=== PATIENT | male | born 1950 | race Caucasian/White ===

== ENCOUNTER 2018-07-27 08:37 | Inpatient (IN) | payer OTHER ==
[~2018-07-27] VITALS: Ht 167.6 cm; Wt 74.0 kg
[~2018-07-27 08:37] MED LIST: NPH,100V SC
[2018-07-27] MEDS ORDERED: VANCOMYCIN 1 GM (PMX) 250 ML IVPB STA (09:10)
[2018-07-27] MEDS ORDERED: SODIUM CHLORIDE 0.9% 1L BAG IV* STA (09:10)
[2018-07-27] MEDS ORDERED: PIPER-TAZO 3.375 GM IV (PMX) 100 ML IVPB STA (09:10)
--- NOTE | 2018-07-27 10:01 | ERD ---
ER Documentation Chief Complaint Chief Complaint PT SENT PER PMD FOR ADMISSION ON LEFT DIABETIC FOOT HPI This is a 68-year-old male with a past medical history of diabetes, diabetic foot ulcers status post left great toe amputation with a chronic plantar ulcer who is presenting with concerns of osteomyelitis. The patient was evaluated by his underground heavy equipment operator yesterday who recommended admission to the hospital for antibiotics and further management. The patient reports intermittent fever and chills at home, but he does not endorse these symptoms currently. Aside from pain and swelling to his left foot, the patient has no other complaints. The patient has had no headache or vision changes. The patient does not endorse neck or back pain. The patient denies lightheadedness or dizziness. The patient has had no chest pain or trouble breathing. The patient denies nausea or vomiting. The patient denies abdominal pain. The patient denies changes to bowel movements or urination. The patient has had no focal deficits. The patient has had no weakness or numbness or tingling to the face or extremities. ROS All systems reviewed and are negative except as per history of present illness. Medications Home Meds Reported Medications Insulin NPH Human Isophane (Humulin N) 100 Unit/1 Ml Vial, 8 UNIT SQ BID, VIAL 07/27/18 Discontinued Reported Medications Nph, Human Insulin Isophane (Humulin N) 100 Units/Ml Vial, 8 UNIT SC BID, VIAL 11/28/14 Allergies Allergies: Coded Allergies: No Known Allergy (Unverified , 07/27/18) PMhx/Soc History of Surgery: Yes (LEFT FIRST TOE AMPUTATION 01/2015) Anesthesia Reaction: No Hx Neurological Disorder: No Hx Respiratory Disorders: No Hx Cardiac Disorders: Yes (Diabetes) Hx Psychiatric Problems: No Hx Miscellaneous Medical Probl: No Hx Alcohol Use: Yes Hx Substance Use: No Hx Tobacco Use: No FmHx Family History: diabetes Physical Exam Vitals Vital Signs Date Temp Pulse Resp B/P (MAP) Pulse Ox O2 O2 Flow FiO2 Time Delivery Rate 07/27/18 101 17 145/75 100 Room Air 09:35 (98) 07/27/18 97.2 70 17 104/57 100 08:40 (73) Physical Exam Const: No apparent distress, well-developed, well-nourished Head: Normocephalic, Atraumatic Eyes: Normal Conjunctiva. Extraocular movements intact. Pupils equal, round and reactive to light ENT: Normal External Ears, Nose and Mouth. Neck: Full range of motion. No meningismus. Resp: Clear to auscultation bilaterally, No wheezes, rales or rhonchi Cardio: Regular rate and rhythm. No murmurs, rubs or gallops Abd: Soft, non tender, non distended. Normal bowel sounds Skin: No petechiae or rashes Back: No midline tenderness. No CVA tenderness Ext: No cyanosis. Left pedal edema. Left foot great toe amputation. Ulceration to the plantar aspect of the foot. Neur: Awake and alert, oriented 4. Cranial nerves intact. No facial droop. Normal strength, sensation and coordination. Psych: Normal Mood and Affect Result Diagram: 07/27/1891307/27/18913 Results 24 hrs Laboratory Tests Test 07/27/18 09:14 07/27/18 09:25 07/27/18 09:46 White Blood Count 6.4 10^3/ul Red Blood Count 3.03 10^6/ul Hemoglobin 9.7 g/dl Hematocrit 29.6 % Mean Corpuscular Volume 97.7 fl Mean Corpuscular Hemoglobin 32.0 pg Mean Corpuscular 32.8 g/dl Hemoglobin Concent Red Cell Distribution Width 12.5 % Platelet Count 395 10^3/UL Mean Platelet Volume 9.9 fl Immature Granulocytes % 0.200 % Neutrophils % 63.6 % Lymphocytes % 25.3 % Monocytes % 8.9 % Eosinophils % 1.7 % Basophils % 0.3 % Nucleated Red Blood Cells % 0.0 /100WBC Immature Granulocytes # 0.010 10^3/ul Neutrophils # 4.1 10^3/ul Lymphocytes # 1.6 10^3/ul Monocytes # 0.6 10^3/ul Eosinophils # 0.1 10^3/ul Basophils # 0.0 10^3/ul Nucleated Red Blood Cells # 0.0 10^3/ul Prothrombin Time 13.8 Sec Prothrombin Time Ratio 1.1 INR International 1.05 Normalized Ratio Activated Partial Thromboplast 36.7 Sec Time Sodium Level 140 mmol/L Potassium Level 4.2 mmol/L Chloride Level 106 mmol/L Carbon Dioxide Level 25 mmol/L Anion Gap 9 Blood Urea Nitrogen 25 mg/dl Creatinine 1.89 mg/dl Est Glomerular Filtrat 35 mL/min Rate mL/min Glucose Level 159 mg/dl Calcium Level 8.7 mg/dl C-Reactive Protein 8.1 mg/dl Erythrocyte Sedimentation Rate 130.0 mm/Hr POC Venous Lactate 2.0 mmol/L Current Medications Medications Dose Sig/Pablo Start Time Status Last (Trade) Ordered Route PRN Stop Time Admin Dose Reason Admin Sodium 2,180 ml BOLUS OVER 2 07/27/18 DC 07/27/18 Chloride HOURS STAT 09:10 10:11 (NS) IV* 07/27/18 09:15 Vancomycin 250 ml @ ONCE STAT 07/27/18 DC 07/27/18 HCl 125 mls/hr IVPB 09:10 10:58 07/27/18 11:09 Piperacillin 100 ml @ ONCE STAT 07/27/18 DC 07/27/18 Sod/ 200 mls/hr IVPB 09:10 10:10 Tazobactam 07/27/18 Sod 09:39 Sodium 1,000 ml @ [id number] IV 07/27/18 07/27/18 Chloride 75 mls/hr 10:22 12:06 Procedures/MDM MDM The patient's presentation warrants further investigation. Previous medical records, if available, were reviewed. LABS The patient's laboratory testing was obtained and reviewed. No emergent treatment was required unless described below. CBC: No E/o of systemic infection or severe anemia or thrombocytopenia. Mild normocytic anemia, not emergent. BMP: No E/o severe acidosis or alkalosis or diabetic ketoacidosis. Increasing creatinine, concerning for acute on chronic kidney disease. Lactate: No E/o severe sepsis ESR/CRP: Elevated, could correlate with osteomyelitis EKG EKG read by me: Rate/Rhythm: Regular rate and rhythm at a rate of 86 bpm Intervals: Normal [place]: Normal Impression: No evidence of acute ischemia or arrhythmia IMAGING Imaging and Radiology interpretation reviewed. CXR FINDINGS: The heart and mediastinum are within normal limits. The lungs are clear. There is no pleural effusion or pneumothorax. IMPRESSION: No acute disease. Electronically viewed and signed by .Shashank Gagnon MD, MD on 07/27/2018 10 :18 XR Foot IMPRESSION: Findings concerning for osteomyelitis at the second and third MTP joints with adjacent soft tissue wound and plantar ulcer. Dislocation at the third MTP joint. Electronically viewed and signed by Physician Maykel on 07/27/2018 10:26 MRI Foot Findings consistent with osteomyelitis and probable septic arthritis at the second and third MTP joints with adjacent soft tissue edema and phlegmonous material, as well as soft tissue air suggesting gangrene. Mild bone marrow edema at the fourth MTP joint without definite destructive changes may represent early osteomyelitis or reactive osteitis. No evidence of osteomyelitis at the first metatarsal amputation site. Dislocation at the third MTP joint. Electronically viewed and signed by Rodri Donohue Physician on 07/27/2018 15:53 TREATMENT/DISPOSITION The patient's presents from his underground heavy equipment operator office with concerns of osteomyelitis, confirmed on the MRI imaging. There is also concern for possible septic arthritis. The patient was started on vancomycin and Zosyn in the emergency department. Blood cultures were sent off. The patient is afebrile with no leukocytosis or lactic acidosis. I have low suspicion for sepsis. I do not feel the patient requires a full septic workup. The patient appears to have acute on chronic kidney disease. This will need to be serially monitored closely in the hospital. At this time, I feel that the patient requires admission for further evaluation and management. The patient will be admitted to Dr. Cordova in accordance with the patient's insurance, [facility]. The patient was accepted 10:30AM on 07/27/2018 to [facility]. Dr. Jack, podiatry, will follow the patient in the hospital with possible need for surgical intervention. Disclaimer: Inadvertent spelling and grammatical errors are likely due to EHR/dictation software use and do not reflect on the overall quality of patient care. Note that the electronic time recorded on this note does not necessarily reflect the actual time of the patient encounter. Departure Diagnosis: Primary Impression: Osteomyelitis of toe of left foot Additional Impressions: Septic arthritis of foot Septic arthritis organism: due to unspecified organism Laterality: left Qualified Codes: M00.9 - Pyogenic arthritis, unspecified Diabetic foot ulcer Diabetic foot ulcer location: midfoot Diabetes mellitus type: type 2 Laterality: left Non-pressure ulcer stage: unspecified non-pressure ulcer stage Qualified Codes: E11.621 - Type 2 diabetes mellitus with foot ulcer; L97.429 - Non-pressure chronic ulcer of left heel and midfoot with unspecified severity Normocytic anemia Elevated erythrocyte sedimentation rate Elevated C-reactive protein (CRP) Acute kidney injury superimposed on chronic kidney disease Condition: YORDAN Frost MD Jul 27, 2018 10:01
[2018-07-27] MEDS ORDERED: ACETAMINOPHEN 325 MG TAB PO PRN ×2 (10:30)
[2018-07-27] MEDS ORDERED: morphine 2 MG INJ IV PRN (10:30)
[2018-07-27] MEDS ORDERED: DOCUSATE SODIUM 100 MG CAP PO PRN (10:30)
[2018-07-27] MEDS ORDERED: HYDROCODONE/APAP (5/325) TAB PO PRN (10:30)
[2018-07-27] MEDS ORDERED: ONDANSETRON 4 MG INJ IV PRN ×2 (10:30)
[2018-07-27] MEDS ORDERED: VANCOMYCIN IV PER PHARMACY XX SCH (10:30)
[2018-07-27] MEDS ORDERED: NACL 0.9% 3 ML SYG IV SCH (10:30)
[2018-07-27] MEDS ORDERED: NPH,100V SQ (11:27)
[2018-07-27 11:44] VITALS: Ht 167.6 cm; Wt 74.0 kg
[2018-07-27 11:49] VITALS: BP 160/72; PULSE 86; RESP 18
[2018-07-27] MEDS: INSULIN ASPART [NOVOLOG] 3 ML PEN SC SCH ×3 (12:00→20:12)
[2018-07-27] MEDS: FAMOTIDINE 20 MG TAB PO SCH (12:05)
[2018-07-27] MEDS: LOSARTAN 50 MG TAB GTB SCH (12:05)
[2018-07-27] MEDS: SOD CHLORIDE 0.9% 1,000 ML IV SCH ×2 (12:06→23:05)
[2018-07-27] MEDS ORDERED: VANCOMYCIN 500 MG (PMX) 100 ML IVPB ONE (14:00)
[2018-07-27] MEDS ORDERED: HEPARIN 5,000 UNIT/0.5 ML VIAL ONE ×2 (14:18→22:53)
[2018-07-27] MEDS: HEPARIN 5,000 UNIT/1 ML VIAL SC SCH ×2 (14:19→23:04)
--- NOTE | 2018-07-27 14:31 | HP ---
Date/Time of Note Date/Time of Note DATE: 07/27/18 TIME: 14:28 Assessment/Plan VTE Prophylaxis Pharmacological prophylaxis: heparin Lines/Catheters IV Catheter [facility] (from [facility]): Saline Lock Urinary Cath still in place: No Assessment/Plan Hospital Course 68 m with DM2 on insulin, HTN, HLD, PAD s/p LLE bypass [address] Steel , s/p left toe amputation who was referred by his tuft machine operator Dr Jack in concern for DM foot infection and osteomyelitis. (1) Diabetic foot infection with evidence of phlegmon and osteomyelitis on MRI , admit to med surg, IV ABX: Vanc and Zosyn, NPO after midnight for possible podiatric intervention , may need amputation ? , venous US to rule out DVT , echo for preoperative assessment (2) HTN (hypertension), continue home Losartan , added Hydralazine 25 Q8h for better BP control (3) CKD stage 3 due to type 1 diabetes mellitus, Creatinine above baseline bases on 5 years ago , DM HTN nephropathy , avoid nephrotoxic agents , renally dosed medications (4) PAD (peripheral artery disease), s/p bypass , arterial US (5) DM2 on insulin, moderate sliding scale insulin , A1C in AM PPX: heparin and Pepcid Dispo : Med Surg Full code Problems: (1) Osteomyelitis of left foot Status: Acute (2) Diabetic foot infection Status: Acute (3) HTN (hypertension) Status: Chronic (4) CKD stage 3 due to type 1 diabetes mellitus Status: Chronic (5) PAD (peripheral artery disease) Status: Chronic HPI/ROS Admit Date/Time Admit Date/Time Jul 27, 2018 at 10:23 Hx of Present Illness 68 m with DM2 on insulin, HTN, HLD, CKD3 (DM nephropathy ), PAD s/p LLE bypass [address] Steel , s/p left toe amputation who was referred by his tuft machine operator Dr Jack in concern for DM foot infection and osteomyelitis. He denies LE pain, denies fever chills , fatigue . denies CP , SOB, nausea vomiting , abdominal pain , melena, hematochezia , change in urinary habits , change in vision . Over the course of past month he developed progressively worsening LLE infections . PMH/Family/Social Past Medical History Coded Allergies: No Known Allergy (Unverified , 07/27/18) Social History Smoking Status: Never smoker Exam/Review of Systems Vital Signs Vitals Vital Signs Date Temp Pulse Resp B/P (MAP) Pulse Ox O2 O2 Flow FiO2 Time Delivery Rate 07/27/18 98.6 86 18 160/72 96 Room Air 11:49 (101) Exam Exam Gen.: In no acute distress, pleasant and cooperative Eyes: Anicteric, conjunctiva normal, PERRLA, EOM intact HEENT: Normocephalic, atraumatic, hearing grossly intact, oral mucosa moist, no oral lesions Neck: Supple, no masses, trachea midline Cardiovascular: Regular rate and rhythm, no murmurs, no gallops, no rubs Respiratory: Clear to auscultation bilaterally, no use of accessory muscles of respiration, no wheezes, expiration not prolonged Extremities: LLE cyanotic toes and metatarsal , edematous and infected looking , malodorous ulcerated left foot , RLE appears normal with very dry skin Abdomen: Soft, not distended, nontender, bowel sounds present, no guarding, no rebound Neurological: Alert and oriented x3, speech normal, CN 2-12 no deficit, no motor or sensory deficit, coordination normal : No Chopra catheter Heme: No acute bleeding, no ecchymosis or petechia Psych: No anxiety depression, mood and affect appropriate Medications Medications Current Medications Ondansetron HCl (Zofran Inj) 4 mg BRIDGE ORDER PRN IV NAUSEA AND/OR VOMITING; Start 07/27/18 at 10:30; Stop 07/28/18 at 10:29 Acetaminophen (Tylenol Tab) 650 mg ER BRIDGE PRN PO MILD PAIN(1-3)OR ELEVATED TEMP; Start 07/27/18 at 10:30; Stop 07/28/18 at 10:29 Sodium Chloride 1,000 ml @ 75 mls/hr [id number] IV Last administered on 07/27/18at 12:06; Admin Dose 75 MLS/HR; Start 07/27/18 at 10:22 IV Flush (NS 3 ml) 3 ml PER PROTOCOL IV ; Start 07/27/18 at 10:30 Ondansetron HCl (Zofran Inj) 4 mg Q6H PRN IV NAUSEA AND/OR VOMITING; Start 07/27/18 at 10:30 Acetaminophen (Tylenol Tab) 650 mg Q6H PRN PO PAIN LEVEL 1-3 OR FEVER; Start 07/27/18 at 10:30 Acetaminophen/ Hydrocodone Bitart ([place] (5/325)) 1 tab Q6H PRN PO MODERATE PAIN LEVEL 4-6; Start 07/27/18 at 10:30 Morphine Sulfate (morphine) 2 mg Q4H PRN IV SEVERE PAIN LEVEL 7-10; Start 07/27/18 at 10:30 Docusate Sodium (Colace) 100 mg Q12H PRN PO CONSTIPATION; Start 07/27/18 at 10:30 Famotidine (Pepcid) 20 mg DAILY PO Last administered on 07/27/18at 12:05; Admin Dose 20 MG; Start 07/27/18 at 12:00 Heparin Sodium (Porcine) (Heparin (5000 Units/1ml)) 5,000 unit Q8 SC Last administered on 07/27/18at 14:19; Admin Dose 5,000 UNIT; Start 07/27/18 at 14:00 Vancomycin HCl (Vanco Iv Per Pharmacy) VANCOMYCIN PER PHARMACY PER PROTOCOL XX ; Start 07/27/18 at 10:30 Piperacillin Sod/ Tazobactam Sod 100 ml @ 200 mls/hr Q8 IVPB ; Start 07/27/18 at 22:00 Diagnostic Test (Pha) (Accu-Chek) 1 ea 02 XX ; Start 07/28/18 at 02:00 Insulin Aspart (Novolog Insulin Pen) NOVOLOG *MODERATE* ALGORITHM WITH MEALS BEDTIME SC ; Start 07/27/18 at 12:00 Losartan Potassium (Cozaar) 50 mg DAILY GTB Last administered on 07/27/18at 12:05; Admin Dose 50 MG; Start 07/27/18 at 11:00 Vancomycin HCl 100 ml @ 100 mls/hr ONCE ONCE IVPB Last administered on 07/27/18at 14:16; Admin Dose 100 MLS/HR; Start 07/27/18 at 14:00; Stop 1 09/27/17 at 14:59 Results Result Diagram: 07/27/1814 07/27/1814 Results 24 hrs Laboratory Tests Test 07/27/18 09:14 07/27/18 09:25 07/27/18 09:46 07/27/18 12:01 White Blood 6.4 Count Red Blood Count 3.03 L Hemoglobin 9.7 L Hematocrit 29.6 L Mean Corpuscular 97.7 Volume Mean Corpuscular 32.0 Hemoglobin Mean Corpuscular 32.8 Hemoglobin Shania nt Red Cell 12.5 Distribution Width Platelet Count 395 Mean Platelet 9.9 # Volume Immature 0.200 Granulocytes % Neutrophils % 63.6 Lymphocytes % 25.3 Monocytes % 8.9 Eosinophils % 1.7 Basophils % 0.3 Nucleated Red 0.0 Blood Cells % Immature 0.010 Granulocytes # Neutrophils # 4.1 Lymphocytes # 1.6 Monocytes # 0.6 Eosinophils # 0.1 Basophils # 0.0 Nucleated Red 0.0 Blood Cells # Prothrombin Time 13.8 Prothrombin Time 1.1 Ratio INR 1.05 International Normalized Ratio Activated 36.7 H Partial Thrombop last Time Sodium Level 140 Potassium Level 4.2 Chloride Level 106 Carbon Dioxide 25 Level Anion Gap 9 Blood Urea 25 H Nitrogen Creatinine 1.89 H Est Glomerular 35 L Filtrat Rate mL/min Glucose Level 159 Calcium Level 8.7 C-Reactive 8.1 H Protein Erythrocyte 130.0 H Sedimentation Rate POC Venous 2.0 Lactate Bedside Glucose 92 LUIS F DYER MD Jul 27, 2018 14:31
[2018-07-27 15:52] VITALS: BP 145/73; PULSE 92; RESP 18
[2018-07-27] MEDS ORDERED: morphine LIQ (10 MG/5 ML) CUP PO PRN (18:00)
[2018-07-27 19:38] VITALS: BP 156/70; PULSE 86; RESP 20
[2018-07-27] MEDS: PIPER-TAZO 3.375 GM IV (PMX) 100 ML IVPB SCH (23:02)
[2018-07-28] VITALS (7 sets, daily range): BP systolic 104–174; BP diastolic 58–80; PULSE 83–102; RESP 17–20
[2018-07-28] MEDS ORDERED: ACCU-CHEK XX SCH (02:00)
[2018-07-28] MEDS: HEPARIN 5,000 UNIT/1 ML VIAL SC SCH ×3 (05:24→22:00)
[2018-07-28] MEDS: PIPER-TAZO 3.375 GM IV (PMX) 100 ML IVPB SCH ×3 (05:24→21:54)
[2018-07-28] MEDS ORDERED: INSULIN ASPART [NOVOLOG] 3 ML PEN SC SCH (08:00)
[2018-07-28] MEDS: Insulin NOVOLOG SS MODERATE Algorithm(NPO/TPN/ENTERAL FEEDS) SC SCH ×3 (09:00→17:00)
--- NOTE | 2018-07-28 09:24 | PN ---
Date/Time of Note Date/Time of Note DATE: 07/28/18 TIME: 09:24 Assessment/Plan VTE Prophylaxis Risk score (from Nsg)>0 risk: 4 SCD applied (from Nsg): Yes Pharmacological prophylaxis: heparin Lines/Catheters IV Catheter Type (from Nrsg): Saline Lock Urinary Cath still in place: No Assessment/Plan Hospital Course 68 m with DM2 on insulin, HTN, HLD, PAD s/p LLE bypass [address] Steel , s/p left toe amputation who was referred by his pyrometer mechanic Dr Jack in concern for DM foot infection and osteomyelitis. (1) Diabetic foot infection with evidence of phlegmon and osteomyelitis on MRI , , IV ABX: Vanc and Zosyn, awaiting podiatric intervention , may need ampu tation ? , venous US ruled out DVT , echo for preoperative assessment was unremarkable , (2) HTN (hypertension), continue home Losartan , added Hydralazine 25 Q8h for better BP control (3) CKD stage 3 due to type 2 diabetes mellitus, Creatinine above baseline bases on 5 years ago on admission which improved s/p hydration , DM HTN nephropathy , avoid nephrotoxic agents , renally dosed medications (4) PAD (peripheral artery disease), s/p bypass ,on arterial US severe PAD demonstrated on the left side , seen by vascular surgery , plan for angiogram on Tuesday by Dr Steel (5) DM2 on insulin, moderate sliding scale insulin , A1C 6.2 PPX: heparin and Pepcid Dispo : Med Surg Full code Subjective 24 Hr Interval Summary Free Text/Dictation No fever , no chills, no fever, tolerating the diet , Exam/Review of Systems Vital Signs Vitals Vital Signs Date Temp Pulse Resp B/P (MAP) Pulse Ox O2 O2 Flow FiO2 Time Delivery Rate 07/28/18 98.0 83 17 174/79 100 Room Air 08:03 (110) Intake and Output 07/27/18 07/27/18 07/28/18 1515:00 23:00 07:00 IntakeIntake Total 2240 ml 685 ml 630 ml OutputOutput Total 700 ml 600 ml 300 ml BalanceBalance 1540 ml 85 ml 330 ml Exam Gen.: In no acute distress, pleasant and cooperative Eyes: Anicteric, conjunctiva normal, PERRLA, EOM intact HEENT: Normocephalic, atraumatic, hearing grossly intact, oral mucosa moist, no oral lesions Neck: Supple, no masses, trachea midline Cardiovascular: Regular rate and rhythm, no murmurs, no gallops, no rubs Respiratory: Clear to auscultation bilaterally, no use of accessory muscles of respiration, no wheezes, expiration not prolonged Extremities: LLE cyanotic toes and metatarsal , edematous and infected looking , malodorous ulcerated left foot , RLE appears normal with very dry skin Abdomen: Soft, not distended, nontender, bowel sounds present, no guarding, no rebound Neurological: Alert and oriented x3, speech normal, CN 2-12 no deficit, no motor or sensory deficit, coordination normal : No Chopra catheter Heme: No acute bleeding, no ecchymosis or petechia Psych: No anxiety depression, mood and affect appropriate Medications Medications Current Medications Sodium Chloride 1,000 ml @ 75 mls/hr [id number] IV Last administered on 07/27/18at 12:06; Admin Dose 75 MLS/HR; Start 07/27/18 at 10:22 IV Flush (NS 3 ml) 3 ml PER PROTOCOL IV ; Start 07/27/18 at 10:30 Ondansetron HCl (Zofran Inj) 4 mg Q6H PRN IV NAUSEA AND/OR VOMITING; Start 07/27/18 at 10:30 Acetaminophen (Tylenol Tab) 650 mg Q6H PRN PO PAIN LEVEL 1-3 OR FEVER; Start 07/27/18 at 10:30 Acetaminophen/ Hydrocodone Bitart ([place] (5/325)) 1 tab Q6H PRN PO MODERATE PAIN LEVEL 4-6; Start 07/27/18 at 10:30 Docusate Sodium (Colace) 100 mg Q12H PRN PO CONSTIPATION; Start 07/27/18 at 10:30 Famotidine (Pepcid) 20 mg DAILY PO Last administered on 07/27/18at 12:05; Admin Dose 20 MG; Start 07/27/18 at 12:00 Heparin Sodium (Porcine) (Heparin (5000 Units/1ml)) 5,000 unit Q8 SC Last administered on 07/27/18at 23:04; Admin Dose 5,000 UNIT; Start 07/27/18 at 14:00 Vancomycin HCl (Vanco Iv Per Pharmacy) VANCOMYCIN PER PHARMACY PER PROTOCOL XX ; Start 07/27/18 at 10:30 Piperacillin Sod/ Tazobactam Sod 100 ml @ 200 mls/hr Q8 IVPB Last administered on 07/28/18at 05:24; Admin Dose 200 MLS/HR; Start 07/27/18 at 22:00 Diagnostic Test (Pha) (Accu-Chek) 1 ea 02 XX ; Start 07/28/18 at 02:00 Losartan Potassium (Cozaar) 50 mg DAILY GTB Last administered on 07/27/18at 12:05; Admin Dose 50 MG; Start 07/27/18 at 11:00 Vancomycin HCl 750 mg/Sodium Chloride 150 ml @ 75 mls/hr Q24H IVPB ; Start 07/28/18 at 11:00 Morphine Sulfate (morphine) 6 mg Q4H PRN PO SEVERE PAIN LEVEL 7-10; Start 07/27/18 at 18:00 Insulin Aspart (Novolog Insulin Pen) (Adult SC Insulin - Moder... Q4 SC ; Start 07/28/18 at 09:00 Sodium Bicarbonate (Na Bicarb 8.4% Syg) 50 ml ONCE ONCE IV ; Start 07/28/18 at 09:30; Stop 07/28/18 at 09:31 Calcium Gluconate 1 gm/Dextrose 110 ml @ 110 mls/hr ONCE ONCE IVPB ; Start 07/28/18 at 11:00; Stop 07/28/18 at 11:59 Hydralazine HCl (Apresoline) 50 mg Q8 PO ; Start 07/28/18 at 14:00 Results Result Diagram: 07/28/18 0619 07/28/18 0619 Results 24 hrs Laboratory Tests Test 07/27/18 09:25 07/27/18 09:46 07/27/18 12:01 07/27/18 13:46 Erythrocyte 130.0 H Sedimentation Rate POC Venous 2.0 Lactate Bedside Glucose 92 Lactic Acid 0.8 Level Test 07/27/18 17:34 07/27/18 20:10 07/28/18 02:31 07/28/18 06:19 Bedside Glucose 99 95 158 White Blood 4.7 #L Count Red Blood Count 2.79 L Hemoglobin 8.8 L Hematocrit 27.0 L Mean Corpuscular 96.8 Volume Mean Corpuscular 31.5 Hemoglobin Mean Corpuscular 32.6 Hemoglobin Shania nt Red Cell 12.5 Distribution Width Platelet Count 355 Mean Platelet 10.0 Volume Immature 0.400 Granulocytes % Neutrophils % 61.2 Lymphocytes % 25.3 Monocytes % 9.9 Eosinophils % 3.0 Basophils % 0.2 Nucleated Red 0.0 Blood Cells % Immature 0.020 Granulocytes # Neutrophils # 2.9 Lymphocytes # 1.2 Monocytes # 0.5 Eosinophils # 0.1 Basophils # 0.0 Nucleated Red 0.0 Blood Cells # Sodium Level 140 Potassium Level 5.3 H Chloride Level 109 Carbon Dioxide 27 Level Anion Gap 4 L Blood Urea 21 H Nitrogen Creatinine 1.62 H Est Glomerular 42 L Filtrat Rate mL/min Glucose Level 130 Hemoglobin A1c 6.2 H Calcium Level 8.8 Phosphorus Level 3.3 Magnesium Level 1.6 L Total Bilirubin 0.3 Direct Bilirubin 0.00 Indirect 0.3 Bilirubin Aspartate Amino 16 Transf (AST/SGOT ) Alanine 19 Aminotransferase (ALT/SGPT) Alkaline 111 Phosphatase Total Protein 5.9 L Albumin 2.6 L Globulin 3.30 H Albumin/Globulin 0.78 Ratio Triglycerides 165 H Level Cholesterol 127 Level LDL Cholesterol, 72 Calculated HDL Cholesterol 22 L Cholesterol/HDL 5.7 Ratio Free Thyroxine Pending Index Thyroxine (T4) Pending Triiodothyronine 42.3 H (T3) Uptake LUIS F DYER MD Jul 28, 2018 09:24
[2018-07-28] MEDS ORDERED: NA BICARBONATE 8.4% 50 ML SYG IV ONE (09:30)
[2018-07-28] MEDS: FAMOTIDINE 20 MG TAB PO SCH (09:47)
[2018-07-28] MEDS: LOSARTAN 50 MG TAB GTB SCH (09:49)
[2018-07-28] MEDS ORDERED: CALCIUM GLUCONATE 10% 1 GM in DEXTROSE 5% 100 ML IVPB ONE (11:00)
[2018-07-28] MEDS: VANCOMYCIN 750 MG in SOD CHLORIDE 0.9% 150 ML IVPB SCH (11:41)
--- NOTE | 2018-07-28 15:05 | CONS ---
DATE OF ADMISSION: 07/27/2018 DATE OF CONSULTATION: 07/28/2018 REFERRING PHYSICIAN: Davion Dyer MD REASON FOR CONSULTATION: Left foot abscess, osteomyelitis. HISTORY OF PRESENT ILLNESS: This is a 68-year-old diabetic hypertensive gentleman who is well known to me from the past. He had a left lower extremity bypass 3 or 4 years ago for osteomyelitis in the 1st toe. The toes went on to be amputated and it healed. The bypass subsequently occluded at some p oint. Over the last several years, it has been chronically occluded. I actually saw him in my offic e probably 4 or 5 months ago with a wound on the left foot and had scheduled him for an angiogram. Debora lnodon never showed up. He never returned any calls. Apparently, he goes in [facility]. He said he just came back from [facility] 12 days ago and about 3 weeks ago, he started having more drainage and has d eveloped cellulitis and infection of the left foot. He saw Dr. Winslow the day before yesterday and debora london was admitted for further evaluation and debridement. PAST MEDICAL HISTORY: Again, significant for diabetes, hypertension, hyperlipidemia, has chronic kid karen disease, peripheral arterial disease. PAST SURGICAL HISTORY: Significant for left pop PT bypass and then 1st toe amputation that was about 4 years ago. He has never had any CABG. He denies any coronary artery disease. MEDICATIONS: Consist of: 1. Vancomycin. 2. Insulin. 3. Subcutaneous heparin. 4. Zosyn. 5. Hydralazine. 6. Morphine. 7. Pepcid. 8. Cozaar. 9. Zofran. 10. Tylenol. SOCIAL HISTORY: He is a former smoker. He goes to [facility] and he just came back from there a few weeks ago. REVIEW OF SYSTEMS: Currently, denies any chest pain, shortness of breath, nausea, vomiting, diarrhea . No fever, no chills, no recent weight gain or weight loss. No abdominal or back pain. He has divya ropathy in his feet. He has no problems in the right foot. PHYSICAL EXAMINATION GENERAL: He is an elderly gentleman. He speaks Nepalese fluently. VITAL SIGNS: He has been afebrile. His blood pressure is 174/79, heart rate 83, respiratory rate is 17, he is 100% sat on room air. PERIPHERAL VASCULAR: He has 2+ carotid, radial and brachial pulses bilaterally. LUNGS: Clear. HEART: Regular rate and rhythm. ABDOMEN: Soft, nontender, nondistended. EXTREMITIES: He has 2+ femoral and popliteal pulses bilaterally. On the right, he has 2+ DP pulse. No wounds on the right. Edema on the left. The pedal pulses are not palpable. There is a wound ov er the previous toe amputation that has some foul smelling drainage. DIAGNOSTIC DATA: He had an MRI of the foot that shows osteomyelitis in the 2nd and 3rd metatarsophal angeal joints. Arterial duplex shows monophasic waveforms in the tibials. LABORATORY DATA: His creatinine is 1.6. IMPRESSION: Necrotizing infection, left foot with osteomyelitis. He has a failed bypass in that leg . He clearly has arterial insufficiency. He needs debridement. Dr. Winslow is seeing him for that a nd I scheduled him for an angiogram on Tuesday morning. We will discuss that with him. He has had it before and he understands. We will try to limit the contrast, use of CO2 contrast if necessar y given his renal dysfunction. Dictated By: MILAGROS ASIF/JOSE Conf#: [id number] DID#: [id number] CC: SUSAN WINSLOW DPM; DAVION DYER MD;*End*
--- NOTE | 2018-07-28 17:08 | RADRPT ---
Echocardiogram Report Patient Name: LUDA LORENZO Gender: Male Date: 1950 Study Date: 28-Jul-2018 Hostage Negotiator: Ovidio Torres [facility] Location: [facility] Ref. Physician: LUIS F DYER Quality: Adequate Procedures: Transthoracic echocardiogram with complete 2D, M-Mode, and doppler examination. Indications: Pre-op. 2D/M Mode Doppler Measurement Value Normal Ranges Measurement Value Normal Ranges LVIDd 2D 5.2 3.5 - 5.6 cm AV Peak Noble 1.2 m/sec LVIDs 2D 3.3 2.1 - 4.1 cm AV Peak PG 5.0 mmHg FS 2D 35.9 % LVOT Peak Noble 1.0 m/sec LVPWd 2D 0.9 0.6 - 1.1 cm LVOT Peak PG 4.0 mmHg IVSd 2D 1.0 0.6 - 1.1 cm MV E Peak Noble 0.7 m/sec IVS/LVPW 2D 1.1 MV A Peak Noble 1.1 m/sec AoR Diam 2D 2.5 2.0 - 3.7 cm MV E/A 0.7 LA/Ao 2D 1 0 - 1 MV Decel Time 151 msec EDV 2D 141.0 cm3 MV E/A 0.7 ESV 2D 37.3 cm3 TR Peak Noble 2.1 m/sec LA Dimen 2D 3.7 2.3 - 4.0 cm TR Peak PG 17.0 mmHg RVSP 27.0 mmHg Findings Left Ventricle: Normal left ventricular systolic function. Normal left ventricular cavity size. Left ventricular wall thickness upper limits of normal. Ejection fraction is visually estimated at 55 %. Tissue Doppler/Mitral Doppler indices are consistent with impaired relaxation (Stage I diastolic dysfunction). Right Ventricle: Normal right ventricular size. Normal right ventricular systolic function. Left Atrium: The left atrium is normal in size. Right Atrium: The right atrium is normal in size. Mitral Valve: Mild mitral leaflet calcification. Mild mitral annular calcification. Trace mitral regurgitation. Aortic Valve: No significant aortic stenosis or insufficiency. Aortic cusps appear mildly calcified. No aortic regurgitation. Tricuspid Valve: Normal appearance of the tricuspid valve. Estimated peak PA systolic pressure 27 mmHg. There is mild tricuspid regurgitation. Pulmonic Valve: Pulmonic valve not well visualized. There is mild pulmonic regurgitation. Pericardium: Normal pericardium with no significant pericardial effusion. Aorta: Normal aortic root. IVC: Normal size and normal respiratory collapse consistent with normal right atrial pressure. Conclusions Normal left ventricular systolic function. Normal left ventricular cavity size. Left ventricular wall thickness upper limits of normal. Ejection fraction is visually estimated at 55 %. Tissue Doppler/Mitral Doppler indices are consistent with impaired relaxation (Stage I diastolic dysfunction). Mild mitral leaflet calcification. Mild mitral annular calcification. Trace mitral regurgitation. No significant aortic stenosis or insufficiency. Aortic cusps appear mildly calcified. No aortic regurgitation. Normal appearance of the tricuspid valve. Estimated peak PA systolic pressure 27 mmHg. There is mild tricuspid regurgitation. Electronically Signed By: Pankaj Curry 28-Jul-2018 17:07:48 -0800 Patient Name: LUDA LORENZO Study Date: 28-Jul-2018 [id number]
[2018-07-28] MEDS: INSULIN ASPART [NOVOLOG] 3 ML PEN SC SCH (21:00)
[2018-07-28] MEDS ORDERED: DEXTROSE 50% 50 ML SYRINGE IV PRN ×2 (21:30)
[2018-07-28] MEDS ORDERED: GLUCOSE GEL 15 GRAM TUBE PO PRN ×2 (21:30)
[2018-07-28] MEDS ORDERED: GLUCOSE GEL 15 GRAM TUBE BUCCAL PRN (21:30)
[2018-07-28] MEDS ORDERED: GLUCAGON 1 MG INJ IM PRN (21:30)
[2018-07-28] MEDS ORDERED: HEPARIN 5,000 UNIT/0.5 ML VIAL ONE (21:48)
[2018-07-28] MEDS: SOD FERRIC GLUC COMPLX 125 MG in SOD CHLORIDE 0.9% 100 ML IVPB SCH (21:55)
--- NOTE | 2018-07-28 23:23 | CONS ---
Date/Time of Note Date/Time of Note DATE: 07/28/18 TIME: 23:21 Assessment/Plan Assessment/Plan Problems: (1) Osteomyelitis of left foot Status: Acute (2) Septic arthritis of foot Status: Acute Qualifiers: Qualified Codes: M00.9 - Pyogenic arthritis, unspecified (3) Osteomyelitis of toe of left foot Status: Acute (4) Diabetic foot infection Status: Acute (5) PAD (peripheral artery disease) Status: Chronic (6) HTN (hypertension) Status: Chronic Additional Assessment/Plan Patient is scheduled for an angiogram this coming Tuesday morning. I will await the results of the angiogram prior to scheduling patient for a transmetatarsal amputation of the left foot. Discussed this with patient in great detail and allowed him to ask questions. The questions were answered. Patient ack nowledges understanding of his current condition and the discussion. Pending results of the angiogram. Consultation Date/Type/Reason Admit Date/Time Jul 27, 2018 at 10:23 Date of Consultation: Jul 28, 2018 Type of Consult Foot and ankle surgery Reason for Consultation Left foot abscess and gangrene Hx of Present Illness Pleasant 68-year-old diabetic male with peripheral vascular disease presented to my office with infection of his left foot. He is status post partial amputation of the left foot and has developed wound on the plantar aspect along with cellulitis and abscess. Patient reports fever and chills in the past week. Reports pain and denies chest pain or shortness of breath. Constitutional: no complaints Eyes: no complaints ENT: no complaints Respiratory: no complaints Social History Smoking Status: Never smoker Exam/Review of Systems Vital Signs Vitals Vital Signs Date Temp Pulse Resp B/P (MAP) Pulse Ox O2 O2 Flow FiO2 Time Delivery Rate 07/28/18 95 114/59 21:00 (77) 07/28/18 98.3 20 99 20:52 07/28/18 Room Air 14:31 Intake and Output 07/27/18 07/27/18 07/28/18 1515:00 23:00 07:00 IntakeIntake Total 2240 ml 685 ml 630 ml OutputOutput Total 700 ml 600 ml 300 ml BalanceBalance 1540 ml 85 ml 330 ml Exam Patient is in no acute distress. Right foot status post partial amputation of toes with open wound on the plantar aspect with cellulitis and abscess formation. Purulent drainage present with malodor. Nonpalpable dorsalis pedis and posterior tibial pulse with decrease in sensation to sharp, dull, vibratory and temperature stimuli. Medications Medications Current Medications IV Flush (NS 3 ml) 3 ml PER PROTOCOL IV ; Start 07/27/18 at 10:30 Ondansetron HCl (Zofran Inj) 4 mg Q6H PRN IV NAUSEA AND/OR VOMITING; Start 07/27/18 at 10:30 Acetaminophen (Tylenol Tab) 650 mg Q6H PRN PO PAIN LEVEL 1-3 OR FEVER; Start 07/27/18 at 10:30 Acetaminophen/ Hydrocodone Bitart ([place] (5/325)) 1 tab Q6H PRN PO MODERATE PAIN LEVEL 4-6; Start 07/27/18 at 10:30 Docusate Sodium (Colace) 100 mg Q12H PRN PO CONSTIPATION; Start 07/27/18 at 10:30 Famotidine (Pepcid) 20 mg DAILY PO Last administered on 07/28/18at 09:47; Admin Dose 20 MG; Start 07/27/18 at 12:00 Heparin Sodium (Porcine) (Heparin (5000 Units/1ml)) 5,000 unit Q8 SC Last administered on 07/28/18at 22:00; Admin Dose 5,000 UNIT; Start 07/27/18 at 14:00 Vancomycin HCl (Vanco Iv Per Pharmacy) VANCOMYCIN PER PHARMACY PER PROTOCOL XX ; Start 07/27/18 at 10:30 Piperacillin Sod/ Tazobactam Sod 100 ml @ 200 mls/hr Q8 IVPB Last administered on 07/28/18at 21:54; Admin Dose 200 MLS/HR; Start 07/27/18 at 22:00 Losartan Potassium (Cozaar) 50 mg DAILY GTB Last administered on 07/28/18at 09:49; Admin Dose 50 MG; Start 07/27/18 at 11:00 Vancomycin HCl 750 mg/Sodium Chloride 150 ml @ 75 mls/hr Q24H IVPB Last administered on 07/28/18at 11:41; Admin Dose 75 MLS/HR; Start 07/28/18 at 11:00 Morphine Sulfate (morphine) 6 mg Q4H PRN PO SEVERE PAIN LEVEL 7-10; Start 07/27/18 at 18:00 Hydralazine HCl (Apresoline) 50 mg Q8 PO Last administered on 07/28/18at 22:02; Admin Dose 50 MG; Start 07/28/18 at 14:00 Miscellaneous Information (*Rx Drug Level Order Reminder*) VANCOMYCIN TROUGH AT 1000 ONCE ONCE XX ; Start 07/29/18 at 10:00; Stop 07/29/18 at 10:01 Sodium Hypochlorite (Dakin'S (Dilute )) 1 applic DAILY IRR ; Start 07/29/18 at 09:00 Ferric Sodium Gluconate Complex 125 mg/Sodium Chloride 100 ml @ 100 mls/hr DAILY@17 IVPB Last administered on 07/28/18at 21:55; Admin Dose 100 MLS/HR; Start 07/28/18 at 21:00; Stop 07/30/18 at 17:59 Diagnostic Test (Pha) (Accu-Chek) 1 ea 02 XX ; Start 07/29/18 at 02:00 Insulin Aspart (Novolog Insulin Pen) NOVOLOG *MODERATE* ALGORITHM WITH MEALS BEDTIME SC ; Start 07/28/18 at 21:00 Miscellaneous Information 1 ea NOTE XX ; Start 07/28/18 at 21:30 Glucose (Glutose) 15 gm Q15M PRN PO DECREASED GLUCOSE; Start 07/28/18 at 21:30 Glucose (Glutose) 22.5 gm Q15M PRN PO DECREASED GLUCOSE; Start 07/28/18 at 21:30 Dextrose (D50w Syringe) 25 ml Q15M PRN IV DECREASED GLUCOSE; Start 07/28/18 at 21:30 Dextrose (D50w Syringe) 50 ml Q15M PRN IV DECREASED GLUCOSE; Start 07/28/18 at 21:30 Glucagon (Glucagen) 1 mg Q15M PRN IM DECREASED GLUCOSE; Start 07/28/18 at 21:30 Glucose (Glutose) 15 gm Q15M PRN BUCCAL DECREASED GLUCOSE; Start 07/28/18 at 21:30 Results Result Diagram: 07/28/1861807/28/18618 Results 24 hrs Laboratory Tests Test 07/28/18 02:31 07/28/18 06:17 07/28/18 06:19 07/28/18 09:36 Bedside Glucose 158 126 Ferritin 170.0 Vitamin B12 363 Level Folate 13.6 White Blood 4.7 #L Count Red Blood Count 2.79 L Hemoglobin 8.8 L Hematocrit 27.0 L Mean Corpuscular 96.8 Volume Mean Corpuscular 31.5 Hemoglobin Mean Corpuscular 32.6 Hemoglobin Shania nt Red Cell 12.5 Distribution Width Platelet Count 355 Mean Platelet 10.0 Volume Immature 0.400 Granulocytes % Neutrophils % 61.2 Lymphocytes % 25.3 Monocytes % 9.9 Eosinophils % 3.0 Basophils % 0.2 Nucleated Red 0.0 Blood Cells % Immature 0.020 Granulocytes # Neutrophils # 2.9 Lymphocytes # 1.2 Monocytes # 0.5 Eosinophils # 0.1 Basophils # 0.0 Nucleated Red 0.0 Blood Cells # Sodium Level 140 Potassium Level 5.3 H Chloride Level 109 Carbon Dioxide 27 Level Anion Gap 4 L Blood Urea 21 H Nitrogen Creatinine 1.62 H Est Glomerular 42 L Filtrat Rate mL/min Glucose Level 130 Hemoglobin A1c 6.2 H Calcium Level 8.8 Phosphorus Level 3.3 Magnesium Level 1.6 L Iron Level 42 Total Iron 222 L Binding Capacity Percent Iron 19 L Saturation Total Bilirubin 0.3 Direct Bilirubin 0.00 Indirect 0.3 Bilirubin Aspartate Amino 16 Transf (AST/SGOT ) Alanine 19 Aminotransferase (ALT/SGPT) Alkaline 111 Phosphatase Total Protein 5.9 L Albumin 2.6 L Globulin 3.30 H Albumin/Globulin 0.78 Ratio Triglycerides 165 H Level Cholesterol 127 Level LDL Cholesterol, 72 Calculated HDL Cholesterol 22 L Cholesterol/HDL 5.7 Ratio Free Thyroxine 1.65 Index Thyroxine (T4) 3.9 L Triiodothyronine 42.3 H (T3) Uptake Test 07/28/18 13:44 07/28/18 17:27 07/28/18 21:53 Bedside Glucose 110 128 131 SUSAN WINSLOW DPM Jul 28, 2018 23:23
[2018-07-29] MEDS: ACCU-CHEK XX SCH (01:14)
[2018-07-29 02:24] VITALS: BP 104/55; PULSE 106; RESP 16
[2018-07-29] MEDS ORDERED: HEPARIN 5,000 UNIT/0.5 ML VIAL ONE ×3 (05:46→20:11)
[2018-07-29] MEDS: HEPARIN 5,000 UNIT/1 ML VIAL SC SCH ×3 (05:52→21:20)
[2018-07-29] MEDS: PIPER-TAZO 3.375 GM IV (PMX) 100 ML IVPB SCH ×3 (05:53→21:17)
[2018-07-29] MEDS: INSULIN ASPART [NOVOLOG] 3 ML PEN SC SCH ×4 (08:07→21:00)
[2018-07-29 08:08] VITALS: BP 108/56; PULSE 69; RESP 16
[2018-07-29] MEDS: LOSARTAN 50 MG TAB GTB SCH (09:00)
[2018-07-29] MEDS: FAMOTIDINE 20 MG TAB PO SCH (09:03)
[2018-07-29] MEDS: SODIUM HYPOCHLORITE (1/40) 1 APPLIC BTL IRR SCH (09:03)
[2018-07-29] MEDS: VANCOMYCIN 750 MG in SOD CHLORIDE 0.9% 150 ML IVPB SCH (11:46)
[2018-07-29 14:30] VITALS: BP 135/62; PULSE 73; RESP 18
[2018-07-29] MEDS: SOD FERRIC GLUC COMPLX 125 MG in SOD CHLORIDE 0.9% 100 ML IVPB SCH (16:08)
[2018-07-29 20:14] VITALS: BP 103/52; PULSE 86; RESP 18
--- NOTE | 2018-07-29 21:21 | PN ---
Date/Time of Note Date/Time of Note DATE: 07/29/18 TIME: 21:18 Assessment/Plan VTE Prophylaxis Risk score (from Nsg)>0 risk: 4 SCD applied (from Nsg): Yes Pharmacological prophylaxis: heparin Lines/Catheters IV Catheter Type (from Nrsg): Saline Lock Urinary Cath still in place: No Assessment/Plan Hospital Course 68 m with DM2 on insulin, HTN, HLD, PAD s/p LLE bypass [address] Steel , s/p left toe amputation who was referred by his facility practice specialist Dr Jack in concern for DM foot infection and osteomyelitis. (1) Diabetic foot infection with evidence of phlegmon and osteomyelitis on MRI , IV ABX: Vanc and Zosyn, awaiting podiatric intervention following angiogram on Tuesday , may need amputation ? , venous US ruled out DVT , echo for preoperative assessment was unremarkable , (2) HTN (hypertension), continue home Losartan , DC Hydralazine as patient felt dizzy (3) CKD stage 3 due to type 2 diabetes mellitus, Creatinine above baseline bases on 5 years ago on admission which improved s/p hydration , DM HTN nephropathy , Creatinine bumped to 2.48 avoid nephrotoxic agents , renally dosed medications , IVF and repeat BMP , renal US (4) PAD (peripheral artery disease), s/p bypass ,on arterial US severe PAD demonstrated on the left side , seen by vascular surgery , plan for angiogram on Tuesday by Dr Steel (5) DM2 on insulin, moderate sliding scale insulin , A1C 6.2 PPX: heparin and Pepcid Dispo : Med Surg awaiting angiogram followed by podiatric evaluation on Tuesday Full code Subjective 24 Hr Interval Summary Free Text/Dictation felt dizzy with the new antihypertensive hydralazine last night , no pain or discomfort , no CP Exam/Review of Systems Vital Signs Vitals Vital Signs Date Temp Pulse Resp B/P (MAP) Pulse Ox O2 O2 Flow FiO2 Time Delivery Rate 07/29/18 98.2 86 18 103/52 98 20:14 (69) 07/28/18 Room Air 14:31 Intake and Output 07/28/18 07/28/18 07/29/18 1515:00 23:00 07:00 IntakeIntake Total 585 ml 700 ml 200 ml OutputOutput Total 1550 ml 900 ml BalanceBalance -965 ml -200 ml 200 ml Exam Gen.: In no acute distress, pleasant and cooperative Eyes: Anicteric, conjunctiva normal, PERRLA, EOM intact HEENT: Normocephalic, atraumatic, hearing grossly intact, oral mucosa moist, no oral lesions Neck: Supple, no masses, trachea midline Cardiovascular: Regular rate and rhythm, no murmurs, no gallops, no rubs Respiratory: Clear to auscultation bilaterally, no use of accessory muscles of respiration, no wheezes, expiration not prolonged Extremities: LLE cyanotic toes and metatarsal , edematous and infected looking , malodorous ulcerated left foot , RLE appears normal with very dry skin Abdomen: Soft, not distended, nontender, bowel sounds present, no guarding, no rebound Neurological: Alert and oriented x3, speech normal, CN 2-12 no deficit, no motor or sensory deficit, coordination normal : No Chopra catheter Heme: No acute bleeding, no ecchymosis or petechia Psych: No anxiety depression, mood and affect appropriate Medications Medications Current Medications IV Flush (NS 3 ml) 3 ml PER PROTOCOL IV ; Start 07/27/18 at 10:30 Ondansetron HCl (Zofran Inj) 4 mg Q6H PRN IV NAUSEA AND/OR VOMITING; Start 07/27/18 at 10:30 Acetaminophen (Tylenol Tab) 650 mg Q6H PRN PO PAIN LEVEL 1-3 OR FEVER; Start 07/27/18 at 10:30 Acetaminophen/ Hydrocodone Bitart ([place] (5/325)) 1 tab Q6H PRN PO MODERATE PAIN LEVEL 4-6; Start 07/27/18 at 10:30 Docusate Sodium (Colace) 100 mg Q12H PRN PO CONSTIPATION; Start 07/27/18 at 10:30 Famotidine (Pepcid) 20 mg DAILY PO Last administered on 07/29/18at 09:03; Admin Dose 20 MG; Start 07/27/18 at 12:00 Heparin Sodium (Porcine) (Heparin (5000 Units/1ml)) 5,000 unit Q8 SC Last administered on 07/29/18at 14:31; Admin Dose 5,000 UNIT; Start 07/27/18 at 14:00 Vancomycin HCl (Vanco Iv Per Pharmacy) VANCOMYCIN PER PHARMACY PER PROTOCOL XX ; Start 07/27/18 at 10:30 Piperacillin Sod/ Tazobactam Sod 100 ml @ 200 mls/hr Q8 IVPB Last administered on 07/29/18at 14:31; Admin Dose 200 MLS/HR; Start 07/27/18 at 22:00 Losartan Potassium (Cozaar) 50 mg DAILY GTB Last administered on 07/28/18at 09:49; Admin Dose 50 MG; Start 07/27/18 at 11:00 Vancomycin HCl 750 mg/Sodium Chloride 150 ml @ 75 mls/hr Q24H IVPB Last administered on 07/29/18at 11:46; Admin Dose 75 MLS/HR; Start 07/28/18 at 11:00 Morphine Sulfate (morphine) 6 mg Q4H PRN PO SEVERE PAIN LEVEL 7-10; Start 07/27/18 at 18:00 Hydralazine HCl (Apresoline) 50 mg Q8 PO Last administered on 07/29/18at 06:09; Admin Dose 50 MG; Start 07/28/18 at 14:00 Sodium Hypochlorite (Dakin'S (Dilute 140)) 1 applic DAILY IRR Last administered on 07/29/18at 09:03; Admin Dose 1 APPLIC; Start 07/29/18 at 09:00 Ferric Sodium Gluconate Complex 125 mg/Sodium Chloride 100 ml @ 100 mls/hr DAILY@17 IVPB Last administered on 07/29/18at 16:08; Admin Dose 100 MLS/HR; Start 07/28/18 at 21:00; Stop 07/30/18 at 17:59 Diagnostic Test (Pha) (Accu-Chek) 1 ea 02 XX ; Start 07/29/18 at 02:00 Insulin Aspart (Novolog Insulin Pen) NOVOLOG *MODERATE* ALGORITHM WITH MEALS BEDTIME SC Last administered on 07/29/18at 17:15; Admin Dose 2 UNIT; Start 07/28/18 at 21:00 Miscellaneous Information 1 ea NOTE XX ; Start 07/28/18 at 21:30 Glucose (Glutose) 15 gm Q15M PRN PO DECREASED GLUCOSE; Start 07/28/18 at 21:30 Glucose (Glutose) 22.5 gm Q15M PRN PO DECREASED GLUCOSE; Start 07/28/18 at 21:30 Dextrose (D50w Syringe) 25 ml Q15M PRN IV DECREASED GLUCOSE; Start 07/28/18 at 21:30 Dextrose (D50w Syringe) 50 ml Q15M PRN IV DECREASED GLUCOSE; Start 07/28/18 at 21:30 Glucagon (Glucagen) 1 mg Q15M PRN IM DECREASED GLUCOSE; Start 07/28/18 at 21:30 Glucose (Glutose) 15 gm Q15M PRN BUCCAL DECREASED GLUCOSE; Start 07/28/18 at 21:30 Results Result Diagram: 07/29/180 07/29/18 0440 Results 24 hrs Laboratory Tests Test 07/28/18 21:53 07/29/18 04:40 07/29/18 08:04 07/29/18 09:48 Bedside Glucose 131 152 White Blood 4.8 Count Red Blood Count 2.86 L Hemoglobin 9.0 L Hematocrit 28.0 L Mean Corpuscular 97.9 Volume Mean Corpuscular 31.5 Hemoglobin Mean Corpuscular 32.1 Hemoglobin Shania nt Red Cell 12.7 Distribution Width Platelet Count 404 Mean Platelet 9.8 Volume Immature 0.200 Granulocytes % Neutrophils % 67.4 Lymphocytes % 22.2 Monocytes % 9.4 Eosinophils % 0.6 Basophils % 0.2 Nucleated Red 0.0 Blood Cells % Immature 0.010 Granulocytes # Neutrophils # 3.2 Lymphocytes # 1.1 Monocytes # 0.5 Eosinophils # 0.0 Basophils # 0.0 Nucleated Red 0.0 Blood Cells # Sodium Level 143 Potassium Level 4.7 Chloride Level 107 Carbon Dioxide 26 Level Anion Gap 10 # Blood Urea 24 H Nitrogen Creatinine 2.18 H Est Glomerular 30 L Filtrat Rate mL/min Glucose Level 116 Calcium Level 8.6 Phosphorus Level 3.6 Magnesium Level 1.5 L Total Bilirubin 0.3 Direct Bilirubin 0.00 Indirect 0.3 Bilirubin Aspartate Amino 17 Transf (AST/SGOT ) Alanine 10 L Aminotransferase (ALT/SGPT) Alkaline 88 Phosphatase Total Protein 6.5 Albumin 2.8 L Globulin 3.70 H Albumin/Globulin 0.75 Ratio Vancomycin Level 11.8 Trough Test 07/29/18 11:51 07/29/18 17:08 Bedside Glucose 133 149 LUIS F DYER MD Jul 29, 2018 21:21
[2018-07-29] MEDS: SOD CHLORIDE 0.9% 1,000 ML IV SCH (21:30)
[2018-07-30] MEDS: ACCU-CHEK XX SCH (01:03)
[2018-07-30 02:09] VITALS: BP 119/68; PULSE 79; RESP 18
[2018-07-30] MEDS ORDERED: HEPARIN 5,000 UNIT/0.5 ML VIAL ONE ×3 (04:32→20:51)
[2018-07-30] MEDS: PIPER-TAZO 3.375 GM IV (PMX) 100 ML IVPB SCH ×3 (05:34→21:49)
[2018-07-30] MEDS: HEPARIN 5,000 UNIT/1 ML VIAL SC SCH ×3 (05:38→21:53)
[2018-07-30] MEDS: SOD CHLORIDE 0.9% 1,000 ML IV SCH ×3 (07:30→16:45)
[2018-07-30] MEDS: INSULIN ASPART [NOVOLOG] 3 ML PEN SC SCH ×4 (07:55→20:55)
[2018-07-30 07:59] VITALS: BP 166/75; PULSE 75; RESP 18
[2018-07-30] MEDS: FAMOTIDINE 20 MG TAB PO SCH (08:00)
[2018-07-30] MEDS: MAGNESIUM OXIDE 400 MG TAB PO SCH ×2 (08:00→20:54)
[2018-07-30] MEDS: LOSARTAN 50 MG TAB GTB SCH (08:00)
[2018-07-30] MEDS: VANCOMYCIN 750 MG in SOD CHLORIDE 0.9% 150 ML IVPB SCH (11:05)
[2018-07-30] MEDS: SODIUM HYPOCHLORITE (1/40) 1 APPLIC BTL IRR SCH (13:10)
--- NOTE | 2018-07-30 13:53 | PN ---
Date/Time of Note Date/Time of Note DATE: 07/30/18 TIME: 13:53 Assessment/Plan VTE Prophylaxis Risk score (from Ns)>0 risk: 3 SCD applied (from Ns): No SCD contraindicated: other Pharmacological prophylaxis: heparin Lines/Catheters IV [facility]ter [facility] (from [facility]): Peripheral IV Urinary Cath still in place: No Assessment/Plan Hospital Course 68 m with DM2 on insulin, HTN, HLD, PAD s/p LLE bypass [address] Steel , s/p left toe amputation who was referred by his planning specialist Dr Jack in concern for DM foot infection and osteomyelitis. (1) Diabetic foot infection with evidence of phlegmon and osteomyelitis on MRI , IV ABX: Vanc and Zosyn, awaiting podiatric intervention following angiogram on Tuesday , may need amputation ? , venous US ruled out DVT , echo for preoperative assessment was unremarkable , Wound culture is positive for enterococcus and corynebacteria. (2) HTN (hypertension),DC Losartan , given up trending Cr. Start Coreg low dose and up titrate as tolerated if hypertensive (3) CKD stage 3 due to type 2 diabetes mellitus, Creatinine above baseline bases on 5 years ago on admission which improved s/p hydration , DM HTN nephropathy , Creatinine bumped to 2.48 avoid nephrotoxic agents , renally dosed medications , IVF and repeat BMP , renal US unremarkable, DC Losartan and start Coreg (4) PAD (peripheral artery disease), s/p bypass ,on arterial US severe PAD demonstrated on the left side , seen by vascular surgery , plan for angiogram on Tuesday by Dr Steel (5) DM2 on insulin, moderate sliding scale insulin , A1C 6.2 PPX: heparin and Pepcid Dispo : Med Surg awaiting angiogram followed by podiatric evaluation on Tuesday Full code Subjective 24 Hr Interval Summary Free Text/Dictation No dizziness, no fever, no chills no CP no SOB Exam/Review of Systems Vital Signs Vitals Vital Signs Date Temp Pulse Resp B/P (MAP) Pulse Ox O2 O2 Flow FiO2 Time Delivery Rate 07/30/18 98.7 75 18 166/75 97 07:59 (105) 07/28/18 Room Air 14:31 Intake and Output 07/29/18 07/29/18 07/30/18 1515:00 23:00 07:00 IntakeIntake Total 390 ml 1500 ml 100 ml OutputOutput Total 650 ml 1000 ml BalanceBalance 390 ml 850 ml -900 ml Exam Gen.: In no acute distress, pleasant and cooperative Eyes: Anicteric, conjunctiva normal, PERRLA, EOM intact HEENT: Normocephalic, atraumatic, hearing grossly intact, oral mucosa moist, no oral lesions Neck: Supple, no masses, trachea midline Cardiovascular: Regular rate and rhythm, no murmurs, no gallops, no rubs Respiratory: Clear to auscultation bilaterally, no use of accessory muscles of respiration, no wheezes, expiration not prolonged Extremities: LLE cyanotic toes and metatarsal , edematous and infected looking , malodorous ulcerated left foot , RLE appears normal with very dry skin Abdomen: Soft, not distended, nontender, bowel sounds present, no guarding, no rebound Neurological: Alert and oriented x3, speech normal, CN 2-12 no deficit, no motor or sensory deficit, coordination normal : No Chopra catheter Heme: No acute bleeding, no ecchymosis or petechia Psych: No anxiety depression, mood and affect appropriate Medications Medications Current Medications IV Flush (NS 3 ml) 3 ml PER PROTOCOL IV ; Start 07/27/18 at 10:30 Ondansetron HCl (Zofran Inj) 4 mg Q6H PRN IV NAUSEA AND/OR VOMITING; Start 07/27/18 at 10:30 Acetaminophen (Tylenol Tab) 650 mg Q6H PRN PO PAIN LEVEL 1-3 OR FEVER; Start 07/27/18 at 10:30 Acetaminophen/ Hydrocodone Bitart ([place] (5/325)) 1 tab Q6H PRN PO MODERATE PAIN LEVEL 4-6; Start 07/27/18 at 10:30 Docusate Sodium (Colace) 100 mg Q12H PRN PO CONSTIPATION; Start 07/27/18 at 10:30 Famotidine (Pepcid) 20 mg DAILY PO Last administered on 07/30/18at 08:00; Admin Dose 20 MG; Start 07/27/18 at 12:00 Heparin Sodium (Porcine) (Heparin (5000 Units/1ml)) 5,000 unit Q8 SC Last administered on 07/30/18at 05:38; Admin Dose 5,000 UNIT; Start 07/27/18 at 14:00 Vancomycin HCl (Vanco Iv Per Pharmacy) VANCOMYCIN PER PHARMACY PER PROTOCOL XX ; Start 07/27/18 at 10:30 Piperacillin Sod/ Tazobactam Sod 100 ml @ 200 mls/hr Q8 IVPB Last administered on 07/30/18at 05:34; Admin Dose 200 MLS/HR; Start 07/27/18 at 22:00 Vancomycin HCl 750 mg/Sodium Chloride 150 ml @ 75 mls/hr Q24H IVPB Last administered on 07/30/18at 11:05; Admin Dose 75 MLS/HR; Start 07/28/18 at 11:00 Morphine Sulfate (morphine) 6 mg Q4H PRN PO SEVERE PAIN LEVEL 7-10; Start 07/27/18 at 18:00 Sodium Hypochlorite (Dakin'S (Dilute )) 1 applic DAILY IRR Last administered on 07/29/18at 09:03; Admin Dose 1 APPLIC; Start 07/29/18 at 09:00 Ferric Sodium Gluconate Complex 125 mg/Sodium Chloride 100 ml @ 100 mls/hr DAILY@17 IVPB Last administered on 07/29/18at 16:08; Admin Dose 100 MLS/HR; Start 07/28/18 at 21:00; Stop 07/30/18 at 17:59 Diagnostic Test (Pha) (Accu-Chek) 1 ea 02 XX ; Start 07/29/18 at 02:00 Insulin Aspart (Novolog Insulin Pen) NOVOLOG *MODERATE* ALGORITHM WITH MEALS BEDTIME SC Last administered on 07/30/18at 11:46; Admin Dose 2 UNIT; Start 07/28/18 at 21:00 Miscellaneous Information 1 ea NOTE XX ; Start 07/28/18 at 21:30 Glucose (Glutose) 15 gm Q15M PRN PO DECREASED GLUCOSE; Start 07/28/18 at 21:30 Glucose (Glutose) 22.5 gm Q15M PRN PO DECREASED GLUCOSE; Start 07/28/18 at 21:30 Dextrose (D50w Syringe) 25 ml Q15M PRN IV DECREASED GLUCOSE; Start 07/28/18 at 21:30 Dextrose (D50w Syringe) 50 ml Q15M PRN IV DECREASED GLUCOSE; Start 07/28/18 at 21:30 Glucagon (Glucagen) 1 mg Q15M PRN IM DECREASED GLUCOSE; Start 07/28/18 at 21:30 Glucose (Glutose) 15 gm Q15M PRN BUCCAL DECREASED GLUCOSE; Start 07/28/18 at 21:30 Sodium Chloride 1,000 ml @ 125 mls/hr Q8H IV ; Start 07/29/18 at 21:30 Magnesium Oxide (Mag-Ox 400) 400 mg BID PO Last administered on 07/30/18at 08:00; Admin Dose 400 MG; Start 07/30/18 at 09:00 Miscellaneous Information (*Rx Drug Level Order Reminder*) VANCOMYCIN TROUGH AT 1000 ONCE ONCE XX ; Start 07/31/18 at 10:00; Stop 07/31/18 at 10:01 Carvedilol (Coreg) 3.125 mg BID PO ; Start 07/30/18 at 21:00; Status UNV Carvedilol (Coreg) 3.125 mg ONCE ONCE PO ; Start 07/30/18 at 14:00; Stop 07/30/18 at 14:01; Status UNV Results Result Diagram: 07/29/18 0440 07/30/18 0443 Results 24 hrs Laboratory Tests Test 07/29/18 17:08 07/29/18 21:16 07/30/18 04:43 07/30/18 07:55 Bedside Glucose 149 129 81 Sodium Level 140 Potassium Level 4.1 Chloride Level 106 Carbon Dioxide 27 Level Anion Gap 7 Blood Urea 24 H Nitrogen Creatinine 2.22 H Est Glomerular 29 L Filtrat Rate mL/min Glucose Level 90 Calcium Level 8.6 Phosphorus Level 3.5 Magnesium Level 1.7 Total Bilirubin 0.3 Direct Bilirubin 0.00 Indirect 0.3 Bilirubin Aspartate Amino 17 Transf (AST/SGOT ) Alanine 16 Aminotransferase (ALT/SGPT) Alkaline 72 Phosphatase Total Protein 6.3 Albumin 2.8 L Globulin 3.50 H Albumin/Globulin 0.80 Ratio Test 07/30/18 11:43 Bedside Glucose 153 LUIS F DYER MD Jul 30, 2018 13:53
[2018-07-30 14:12] VITALS: BP 114/57; PULSE 82; RESP 18
[2018-07-30] MEDS: SOD FERRIC GLUC COMPLX 125 MG in SOD CHLORIDE 0.9% 100 ML IVPB SCH (17:09)
[2018-07-30 20:53] VITALS: BP 134/65; PULSE 79; RESP 18
[2018-07-31] VITALS (15 sets, daily range): BP systolic 123–156; BP diastolic 62–86; PULSE 66–78; RESP 10–18
[2018-07-31] MEDS: INSULIN ASPART [NOVOLOG] 3 ML PEN SC SCH ×6 (01:00→21:00)
[2018-07-31] MEDS: ACCU-CHEK XX SCH (02:00)
[2018-07-31] MEDS: SOD CHLORIDE 0.9% 1,000 ML IV SCH ×3 (03:10→16:04)
[2018-07-31] MEDS: HEPARIN 5,000 UNIT/1 ML VIAL SC SCH ×3 (05:31→22:09)
[2018-07-31] MEDS: PIPER-TAZO 3.375 GM IV (PMX) 100 ML IVPB SCH ×3 (05:46→22:08)
[2018-07-31] MEDS ORDERED: LIDOCAINE 2% (MDV) 20 ML INJ ONE (06:58)
[2018-07-31] MEDS ORDERED: FENTAnyl 50 MCG/ML VIAL ONE (06:58)
[2018-07-31] MEDS ORDERED: SOD CHLORIDE 0.9% 500 ML ONE (06:58)
[2018-07-31] MEDS ORDERED: MIDAZOLAM 1 MG/ML 2 ML INJ ONE (06:58)
--- NOTE | 2018-07-31 07:55 | SIPON ---
Date/Time of Note Date/Time of Note DATE: 07/31/18 TIME: 07:53 Operative Report Preoperative Diagnosis L foot osteo Postoperative Diagnosis same Operation/Procedure Performed aortogram, LLE angiogram - AT and PT are occluded in the calf, DP and PT are occluded in the foot, peroneal is patent with multiple collaterals into the foot but no distal target vessel for revascularization Surgeon see signature line operational assistant none Anesthesia: moderate sedation Estimated blood loss: minimal Transfusion Required none Specimen none Grafts/Implants none Complications none MILAGROS CARRANZA MD Jul 31, 2018 07:55
[2018-07-31] MEDS ORDERED: IODIXANOL LOCM 50 ML BTL ONE (08:02)
--- NOTE | 2018-07-31 08:37 | OPR ---
DATE OF OPERATION: 07/31/2018 PREOPERATIVE DIAGNOSIS: Left foot osteomyelitis with extensive wounds. POSTOPERATIVE DIAGNOSIS: Left foot osteomyelitis with extensive wounds. PROCEDURE PERFORMED: Abdominal aortogram with left lower extremity runoff using CO2 and I used a tot al of 10 mL of iodinated contrast. SURGEON: Milagros Steel MD ANESTHESIA: Local with sedation. ESTIMATED BLOOD LOSS: Minimal. COMPLICATIONS: No intraprocedural complications. INDICATIONS: A 68-year-old gentleman. He has had his first toe amputated 3 or 4 years ago after a l eft pop-PT bypass. The pop-PT bypass has been occluded for several years and has been doing okay. I saw him a few months ago with a small ulcer on the foot and actually recommended an angio at the [facility], but he never came back. Apparently he went to [facility] and came back last week with foul smellin g drainage and abscess with clear osteomyelitis in the left foot. He has a palpable pop and no pedal pulses. We brought him in today for angiogram and possible intervention. There was no target vesse l and so no intervention was performed. PROCEDURE: The patient was brought to the section laborer, placed on the table in supine position. Right ceasar rahman was prepped and draped in the usual sterile fashion. I began by using ultrasound to identify th e right common femoral artery, infiltrated over the artery using about 5 mL of 1% Xylocaine. I used a micropuncture needle to enter the artery under ultrasound guidance and an 0.018 wire was inserted t hrough the needle into the artery and the micropuncture sheath was advanced over the wire, I then adv anced an 0.035 Bentson wire through the micropuncture sheath and up into the abdominal aorta. I exch anged the micropuncture sheath for a 5-[place] sheath over the wire. I then advanced the Omniflush ca theter into the infrarenal aorta. I did an aortogram and then advanced the catheter up and over the bifurcation using the Bentson wire for support. I advanced the catheter into the left SFA and then d id runoff down the left leg. At this point, I used only CO2. I did the aorta and all the way down t o the ankle with CO2. I then injected a total of 10 mL. I did 2 injections of 10 mL of half strengt h contrast to get a little better visualization. FINDINGS OF ANGIOGRAPHY: Infrarenal aorta is widely patent. Left common, superficial and profundafe moral artery is widely patent. The left popliteal artery is widely patent. The left anterior tibial and posterior tibial artery is occluded in the upper calf. The peroneal artery is very large and ex tends all the way down to the ankle and gives collaterals into the foot and multiple collaterals. Th ere is no named vessel in the foot. The dorsalis pedis is gone, the posterior tibial is gone. There is really no plantar branches. There is no lateral tarsal branch that is visualized. There is real ly no named vessel in the foot up and below the ankle and peroneal is widely patent and quite large a ll the way down to the ankle with multiple collaterals into the foot. There was no intervention to b e performed. I then removed the catheter sheaths and wires and used a 5-[place] Citizen Mynx device to seal t he right groin puncture site with good hemostasis. Sterile dressing was applied. The patient was tr ansferred back to his room in stable condition. He needs to be on bed rest for 4 hours. There was n o revascularization option at this point, but he likely will heal whatever he needs done based on the peroneal flow. It should heal at least the TMA. I will discuss with Dr. Winslow. Dictated By: MILAGROS ASIF/JOSE Conf#: [id number] DID#: [id number] CC: LUIS F DYER MD; SUSAN WINSLOW DPJake;*End*
[2018-07-31] MEDS: MAGNESIUM OXIDE 400 MG TAB PO SCH ×2 (10:11→21:05)
[2018-07-31] MEDS: FAMOTIDINE 20 MG TAB PO SCH (10:11)
[2018-07-31] MEDS: SODIUM HYPOCHLORITE (1/40) 1 APPLIC BTL IRR SCH (10:13)
--- NOTE | 2018-07-31 10:18 | PN ---
Date/Time of Note Date/Time of Note DATE: 07/31/18 TIME: 10:12 Assessment/Plan VTE Prophylaxis Risk score (from Nsg)>0 risk: 4 SCD applied (from Nsg): Yes Pharmacological prophylaxis: heparin Lines/Catheters IV Catheter Type (from Nrsg): Peripheral IV Urinary Cath still in place: No Assessment/Plan Assessment/Plan 68 yo male with: 1. Diabetic foot infection with evidence of phlegmon and osteomyelitis on MRI , polymicrobial infection, currently on vancomycin with seems to cover most of the organisms growing so far, also on Zosyn. Appreciate vascular surgery rec ommendation post angiogram today, awaiting further recommendations from podiatry. Will have infectious disease consulted. 2. Hypertension, continue Coreg. Avoiding ARB and PASCUAL inhibitors given renal function. 3. Chronic kidney disease stage III secondary to diabetic and or hypertensive nephropathy. Renal function seems to have improved as of today. Avoiding nephrotoxic agents, all medications being renally dose. Monitor BMP. 4. PAD/PVD, again appreciate recommendations from vascular surgery, no intervention needed to his left lower extremity. Continue medical management and follow-up podiatry recommendations. 5. Diabetes mellitus, continue current insulin regimen. A1C 6.2 Prophylaxis: Heparin for DVT prophylaxis, Pepcid for GI prophylaxis. Disposition: Status post left lower extremity angiogram this morning, no further vascular intervention needed according to Dr. Steel, awaiting podiatry decision regarding further intervention for his left foot, transmetatarsal amputation versus further limb salvage debridements. Full code Subjective 24 Hr Interval Summary Free Text/Dictation Patient doing well, status post angiogram of the left lower extremity, discussed with Dr. Steel, no significant occlusion that needs intervention. We need to follow-up with podiatry regarding options of debridement versus transmetatarsal amputation. Exam/Review of Systems Vital Signs Vitals Vital Signs Date Temp Pulse Resp B/P (MAP) Pulse Ox O2 O2 Flow FiO2 Time Delivery Rate 07/31/18 98.1 74 17 156/76 96 Room Air 10:08 (102) Intake and Output 07/30/18 07/30/18 07/31/18 1515:00 23:00 07:00 IntakeIntake Total 250 ml 955 ml 1335 ml OutputOutput Total 1000 ml 1400 ml 700 ml BalanceBalance -750 ml -445 ml 635 ml Exam Constitutional: alert, oriented, well developed Respiratory: clear to auscultation, normal air movement Cardiovascular: regular rate and rhythm, nl pulses Gastrointestinal: soft, non-tender Musculoskeletal: nl extremities to inspection, other (Left lower extremity with dressing in place.) Neurological: MERCHANDISING STOCK ASSOCIATE II-XII intact, nl mental status, nl speech, nl strength Medications Medications Current Medications IV Flush (NS 3 ml) 3 ml PER PROTOCOL IV ; Start 07/27/18 at 10:30 Ondansetron HCl (Zofran Inj) 4 mg Q6H PRN IV NAUSEA AND/OR VOMITING; Start 07/27/18 at 10:30 Acetaminophen (Tylenol Tab) 650 mg Q6H PRN PO PAIN LEVEL 1-3 OR FEVER; Start 07/27/18 at 10:30 Acetaminophen/ Hydrocodone Bitart ([place] (5/325)) 1 tab Q6H PRN PO MODERATE PAIN LEVEL 4-6; Start 07/27/18 at 10:30 Docusate Sodium (Colace) 100 mg Q12H PRN PO CONSTIPATION; Start 07/27/18 at 10:30 Famotidine (Pepcid) 20 mg DAILY PO Last administered on 07/30/18at 08:00; Admin Dose 20 MG; Start 07/27/18 at 12:00 Heparin Sodium (Porcine) (Heparin (5000 Units/1ml)) 5,000 unit Q8 SC Last administered on 07/30/18at 21:53; Admin Dose 5,000 UNIT; Start 07/27/18 at 14:00 Vancomycin HCl (Vanco Iv Per Pharmacy) VANCOMYCIN PER PHARMACY PER PROTOCOL XX ; Start 07/27/18 at 10:30 Piperacillin Sod/ Tazobactam Sod 100 ml @ 200 mls/hr Q8 IVPB Last administered on 07/31/18at 05:46; Admin Dose 200 MLS/HR; Start 07/27/18 at 22:00 Vancomycin HCl 750 mg/Sodium Chloride 150 ml @ 75 mls/hr Q24H IVPB Last administered on 07/30/18at 11:05; Admin Dose 75 MLS/HR; Start 07/28/18 at 11:00 Morphine Sulfate (morphine) 6 mg Q4H PRN PO SEVERE PAIN LEVEL 7-10; Start 07/27/18 at 18:00 Sodium Hypochlorite (Dakin'S (Dilute )) 1 applic DAILY IRR Last a dministered on 07/30/18at 13:10; Admin Dose 1 APPLIC; Start 07/29/18 at 09:00 Diagnostic Test (Pha) (Accu-Chek) 1 ea 02 XX ; Start 07/29/18 at 02:00 Miscellaneous Information 1 ea NOTE XX ; Start 07/28/18 at 21:30 Glucose (Glutose) 15 gm Q15M PRN PO DECREASED GLUCOSE; Start 07/28/18 at 21:30 Glucose (Glutose) 22.5 gm Q15M PRN PO DECREASED GLUCOSE; Start 07/28/18 at 21:30 Dextrose (D50w Syringe) 25 ml Q15M PRN IV DECREASED GLUCOSE; Start 07/28/18 at 21:30 Dextrose (D50w Syringe) 50 ml Q15M PRN IV DECREASED GLUCOSE; Start 07/28/18 at 21:30 Glucagon (Glucagen) 1 mg Q15M PRN IM DECREASED GLUCOSE; Start 07/28/18 at 21:30 Glucose (Glutose) 15 gm Q15M PRN BUCCAL DECREASED GLUCOSE; Start 07/28/18 at 21:30 Sodium Chloride 1,000 ml @ 125 mls/hr Q8H IV Last administered on 07/31/18at 03:10; Admin Dose 125 MLS/HR; Start 07/29/18 at 21:30 Magnesium Oxide (Mag-Ox 400) 400 mg BID PO Last administered on 07/30/18at 20:54; Admin Dose 400 MG; Start 07/30/18 at 09:00 Carvedilol (Coreg) 3.125 mg BID PO Last administered on 07/30/18at 20:55; Admin Dose 3.125 MG; Start 07/30/18 at 21:00 Insulin Aspart (Novolog Insulin Pen) NOVOLOG *MODERATE* ALGORI... Q4 SC ; Start 07/31/18 at 01:00 Results Result Diagram: 07/31/18 0446 07/31/18 0446 Results 24 hrs Laboratory Tests Test 07/30/18 11:43 07/30/18 17:13 07/30/18 20:51 07/31/18 01:07 Bedside Glucose 153 114 160 102 Test 07/31/18 04:46 07/31/18 05:05 07/31/18 10:07 White Blood 3.9 L Count Red Blood Count 2.69 L Hemoglobin 8.6 L Hematocrit 25.9 L Mean Corpuscular 96.3 Volume Mean Corpuscular 32.0 Hemoglobin Mean Corpuscular 33.2 Hemoglobin Shania nt Red Cell 12.8 Distribution Width Platelet Count 302 # Mean Platelet 9.5 Volume Immature 0.300 Granulocytes % Neutrophils % 51.1 Lymphocytes % 30.8 Monocytes % 11.7 H Eosinophils % 5.6 Basophils % 0.5 Nucleated Red 0.0 Blood Cells % Immature 0.010 Granulocytes # Neutrophils # 2.0 Lymphocytes # 1.2 Monocytes # 0.5 Eosinophils # 0.2 Basophils # 0.0 Nucleated Red 0.0 Blood Cells # Sodium Level 143 Potassium Level 4.2 Chloride Level 110 Carbon Dioxide 26 Level Anion Gap 7 Blood Urea 21 H Nitrogen Creatinine 1.82 H Est Glomerular 37 L Filtrat Rate mL/min Glucose Level 99 Calcium Level 8.3 L Phosphorus Level 3.2 Magnesium Level 1.7 Total Bilirubin 0.3 Direct Bilirubin 0.00 Indirect 0.3 Bilirubin Aspartate Amino 22 Transf (AST/SGOT ) Alanine 9 L Aminotransferase (ALT/SGPT) Alkaline 78 Phosphatase Total Protein 6.1 Albumin 2.7 L Globulin 3.40 H Albumin/Globulin 0.79 Ratio Bedside Glucose 96 105 ELYSIA OROZCO Jul 31, 2018 10:18
[2018-07-31] MEDS: VANCOMYCIN 750 MG in SOD CHLORIDE 0.9% 150 ML IVPB SCH (12:33)
--- NOTE | 2018-07-31 19:08 | CONS ---
DATE OF ADMISSION: 07/27/2018 DATE OF CONSULTATION: 07/31/2018 TYPE OF CONSULTATION: Infectious disease. REASON FOR CONSULTATION: Antibiotic management. HISTORY OF PRESENT ILLNESS: Adam Chaparro is a pleasant 68-year-old male with numerous prob lems who comes in with diabetic foot infection and is being seen for antibiotic management of the lef t foot infection. His past problems include: 1. Adult-onset diabetes mellitus. 2. Hypertension. 3. Hyperlipidemia. 4. Peripheral artery disease. 5. Status post left lower extremity bypass [address] Carranza. 6. Status post left toe amputation. The patient was referred to Dr. Jack because of diabetic foot infection and osteomyelitis. He has a diabetic foot infection with evidence of phlegmon and osteomyelitis on MRI. He was admitted to med /surg and was placed on vancomycin and Zosyn. HOSPITAL COURSE: On admission, his white count was 6.4, H and H of 9.7 and 29.6, platelet count 295, 000. BUN and creatinine was 25/1.89. On 07/31/2018, he had an abdominal angiogram with left lower e xtremity runoff using CO2 and 10 mL of iodinated contrast. The findings of infrarenal aorta are wide ly open, left common, superficial and profunda femoral artery is widely patent. Left popliteal arter y is widely patent. Left anterior tibial and posterior tibial artery is occluded in the upper calf. Peroneal artery is very large and extends all the way down to the ankle. Dorsalis pedis is gone. P osterior tibial is gone. There is no [place] vessel in the foot up and below the ankle. There is no revascularization option at this point, but likely will heal whatever based on the peroneal jimy w. It should heal at least the TMA. The patient had a left 1st toe amputation in 01/2015. PAST MEDICAL HISTORY: As outlined. FAMILY HISTORY: Noncontributory. SOCIAL HISTORY: He does not smoke, drink or abuse drugs. ALLERGIES: NONE TO PENICILLIN, SULFA OR FOODS. MEDICATIONS: Per chart. REVIEW OF SYSTEMS: As per HPI. PHYSICAL EXAMINATION: GENERAL: The patient is well-developed, well-nourished male who is alert, responsive, speaking Spani sh, in no acute distress. VITAL SIGNS: Stable. He is afebrile. SKIN: Without generalized rash. HEENT: Within normal limits. NECK: Supple. LYMPH NODES: None palpable. CHEST: Decreased breath sounds at the bases. HEART: Without murmur or gallop. ABDOMEN: Soft, nontender without organosplenomegaly or masses. EXTREMITIES: Left lower extremity is bandaged; the right without cyanosis, clubbing or edema. RECTAL AND GENITAL: Deferred. NEUROLOGIC: No focal neurological abnormality. IMPRESSION AND PLAN: The patient had a left 1st toe amputation. He has osteomyelitis of the left fo ot. The angiogram was done and Dr. Jack will schedule the patient for transmetatarsal amputation o f the left foot. Currently, he is on vancomycin and Zosyn. We will continue his current antibiotics until surgery is completed. I will dictate my findings to Dr. Collins as well as to Dr. Jack and Dr. Carranza. The left foot is growing Enterococcus species, Corynebacterium and gamma hemolytic Streptoco ccus, all of which should be sensitive to vancomycin. We will continue him on his current regimen, s o we may be able to stop the Zosyn very shortly if nothing else grows. I will dictate my findings to the above physicians. Dictated By: SULTANA CHACON MD, JD/JOSE Conf#: [id number] DID#: [id number] CC: MILAGROS CARRANZA MD; LUIS F DYER MD;*[facility]*
--- NOTE | 2018-07-31 23:29 | PN ---
Date/Time of Note Date/Time of Note DATE: 07/31/18 TIME: 23:29 Assessment/Plan Lines/Catheters IV Catheter Type (from Nrs): Peripheral IV Chopra in Place (from Nrsg): No Assessment/Plan Problems: (1) Osteomyelitis of toe of left foot Status: Acute (2) HTN (hypertension) Status: Chronic (3) PAD (peripheral artery disease) Status: Chronic (4) Osteomyelitis of left foot Status: Acute (5) Diabetic foot infection Status: Acute (6) CKD stage 3 due to type 1 diabetes mellitus Status: Chronic (7) FH: diabetes mellitus Assessment/Plan Patient is scheduled for surgery on 01 August 2018. Plan is transmetatarsal amputation of the right foot. Preoperative orders have been written. Patient will be seen in the operating room. Subjective 24 Hr Interval Summary Patient seen and examined at bedside. Denies fever and chills and reports no chest pain or shortness of breath. Patient has been on IV antibiotics. Constitutional: no complaints Pain Control: well controlled Exam/Review of Systems Vital Signs Vitals Exam Free Text/Dictation Improved edema and erythema. Continues to have open wound of the right foot. Labs reviewed. Imaging reviewed. No other changes noted on examination. SUSAN WINSLOW DPM Jul 31, 2018 23:29
[2018-08-01] VITALS (16 sets, daily range): BP systolic 142–180; BP diastolic 64–101; PULSE 63–86; RESP 12–27
[2018-08-01] MEDS: INSULIN ASPART [NOVOLOG] 3 ML PEN SC SCH ×6 (01:00→21:00)
[2018-08-01] MEDS: SOD CHLORIDE 0.9% 1,000 ML IV SCH ×3 (01:30→10:22)
[2018-08-01] MEDS: ACCU-CHEK XX SCH (02:00)
[2018-08-01] MEDS: PIPER-TAZO 3.375 GM IV (PMX) 100 ML IVPB SCH (05:50)
[2018-08-01] MEDS: HEPARIN 5,000 UNIT/1 ML VIAL SC SCH ×3 (06:00→21:02)
[2018-08-01] MEDS ORDERED: SEVOFLURANE 15 MIN ONE (07:00)
[2018-08-01] MEDS: MAGNESIUM OXIDE 400 MG TAB PO SCH ×2 (08:28→21:00)
[2018-08-01] MEDS: FAMOTIDINE 20 MG TAB PO SCH (08:28)
[2018-08-01] MEDS: SODIUM HYPOCHLORITE (1/40) 1 APPLIC BTL IRR SCH (08:29)
--- NOTE | 2018-08-01 09:59 | PN ---
Date/Time of Note Date/Time of Note DATE: 08/01/18 TIME: 09:55 Assessment/Plan VTE Prophylaxis Risk score (from Nsg)>0 risk: 4 SCD applied (from Nsg): Yes Pharmacological prophylaxis: heparin Lines/Catheters IV Catheter Type (from Nrsg): Peripheral IV Urinary Cath still in place: No Assessment/Plan Assessment/Plan 68 yo male with: 1. Diabetic foot infection with evidence of phlegmon and osteomyelitis on MRI , polymicrobial infection, currently on vancomycin with seems to cover most of the organisms growing so far, also on Zosyn. Appreciate vascular surgery recommendations, no vascular intervention needed. Plan for podiatry procedure today, possible transmetatarsal amputation. Appreciate infectious disease recommendations. 2. Hypertension, continue Coreg. Avoiding ARB and PASCUAL inhibitors given renal function. 3. Chronic kidney disease stage III secondary to diabetic and or hypertensive nephropathy. Renal function seems to have improved as of today. Avoiding nephrotoxic agents, all medications being renally dose. Monitor BMP. 4. PAD/PVD, again appreciate recommendations from vascular surgery, no intervention needed to his left lower extremity. Continue medical management and follow-up podiatry recommendations. 5. Diabetes mellitus, continue current insulin regimen. A1C 6.2 Prophylaxis: Heparin for DVT prophylaxis, Pepcid for GI prophylaxis. Disposition: Surgical intervention to left foot, transmetatarsal amputation versus further limb salvage debridements with Dr Jack today Full code Subjective 24 Hr Interval Summary Free Text/Dictation Patient remained stable, to OR today with podiatry Exam/Review of Systems Vital Signs Vitals Vital Signs Date Temp Pulse Resp B/P (MAP) Pulse Ox O2 O2 Flow FiO2 Time Delivery Rate 08/01/18 98.1 63 16 174/81 97 08:15 (112) 07/31/18 Room Air 10:08 Intake and Output 07/31/18 07/31/18 08/01/18 1515:00 23:00 07:00 IntakeIntake Total 150 ml 500 ml 1700 ml OutputOutput Total 300 ml 400 ml 1000 ml BalanceBalance -150 ml 100 ml 700 ml Exam Constitutional: alert, oriented, well developed Respiratory: clear to auscultation, normal air movement Cardiovascular: regular rate and rhythm, nl pulses Gastrointestinal: soft, non-tender Musculoskeletal: other (Left foot with dressing in place.) Extremities: normal pulses, other (Edema, clubbing or cyanosis) 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, nl mental status, nl speech, nl strength Medications Medications Current Medications IV Flush (NS 3 ml) 3 ml PER PROTOCOL IV ; Start 07/27/18 at 10:30 Ondansetron HCl (Zofran Inj) 4 mg Q6H PRN IV NAUSEA AND/OR VOMITING; Start 07/27/18 at 10:30 Acetaminophen (Tylenol Tab) 650 mg Q6H PRN PO PAIN LEVEL 1-3 OR FEVER; Start 07/27/18 at 10:30 Acetaminophen/ Hydrocodone Bitart ([place] (5/325)) 1 tab Q6H PRN PO MODERATE PA IN LEVEL 4-6; Start 07/27/18 at 10:30 Docusate Sodium (Colace) 100 mg Q12H PRN PO CONSTIPATION; Start 07/27/18 at 10:30 Famotidine (Pepcid) 20 mg DAILY PO Last administered on 08/01/18at 08:28; Admin Dose 20 MG; Start 07/27/18 at 12:00 Heparin Sodium (Porcine) (Heparin (5000 Units/1ml)) 5,000 unit Q8 SC Last administered on 07/31/18at 22:09; Admin Dose 5,000 UNIT; Start 07/27/18 at 14:00 Vancomycin HCl (Vanco Iv Per Pharmacy) VANCOMYCIN PER PHARMACY PER PROTOCOL XX ; Start 07/27/18 at 10:30 Piperacillin Sod/ Tazobactam Sod 100 ml @ 200 mls/hr Q8 IVPB Last administered on 08/01/18at 05:50; Admin Dose 200 MLS/HR; Start 07/27/18 at 22:00 Vancomycin HCl 750 mg/Sodium Chloride 150 ml @ 75 mls/hr Q24H IVPB Last administered on 07/31/18at 12:33; Admin Dose 75 MLS/HR; Start 07/28/18 at 11:00 Morphine Sulfate (morphine) 6 mg Q4H PRN PO SEVERE PAIN LEVEL 7-10; Start 07/27/18 at 18:00 Sodium Hypochlorite (Dakin'S (Dilute )) 1 applic DAILY IRR Last administered on 08/01/18at 08:29; Admin Dose 1 APPLIC; Start 07/29/18 at 09:00 Diagnostic Test (Pha) (Accu-Chek) 1 ea 02 XX ; Start 07/29/18 at 02:00 Miscellaneous Information 1 ea NOTE XX ; Start 07/28/18 at 21:30 Glucose (Glutose) 15 gm Q15M PRN PO DECREASED GLUCOSE; Start 07/28/18 at 21:30 Glucose (Glutose) 22.5 gm Q15M PRN PO DECREASED GLUCOSE; Start 07/28/18 at 21:30 Dextrose (D50w Syringe) 25 ml Q15M PRN IV DECREASED GLUCOSE; Start 07/28/18 at 21:30 Dextrose (D50w Syringe) 50 ml Q15M PRN IV DECREASED GLUCOSE; Start 07/28/18 at 21:30 Glucagon (Glucagen) 1 mg Q15M PRN IM DECREASED GLUCOSE; Start 07/28/18 at 21:30 Glucose (Glutose) 15 gm Q15M PRN BUCCAL DECREASED GLUCOSE; Start 07/28/18 at 21:30 Sodium Chloride 1,000 ml @ 125 mls/hr Q8H IV Last administered on 08/01/18at 01:30; Admin Dose 125 MLS/HR; Start 07/29/18 at 21:30 Magnesium Oxide (Mag-Ox 400) 400 mg BID PO Last administered on 08/01/18at 08:28; Admin Dose 400 MG; Start 07/30/18 at 09:00 Carvedilol (Coreg) 3.125 mg BID PO Last administered on 08/01/18at 08:29; Admin Dose 3.125 MG; Start 07/30/18 at 21:00 Insulin Aspart (Novolog Insulin Pen) NOVOLOG *MODERATE* ALGORI... Q4 SC ; Start 07/31/18 at 01:00 Results Result Diagram: 08/01/18 0651 08/01/18 0651 Results 24 hrs Laboratory Tests Test 07/31/18 10:07 07/31/18 10:20 07/31/18 13:21 07/31/18 17:07 Bedside Glucose 105 102 125 Vancomycin Level 12.2 Trough Test 07/31/18 21:07 08/01/18 01:30 08/01/18 05:16 08/01/18 06:51 Bedside Glucose 99 128 106 White Blood 3.8 L Count Red Blood Count 2.76 L Hemoglobin 8.7 L Hematocrit 26.8 L Mean Corpuscular 97.1 Volume Mean Corpuscular 31.5 Hemoglobin Mean Corpuscular 32.5 Hemoglobin Shania nt Red Cell 12.6 Distribution Width Platelet Count 273 Mean Platelet 9.4 Volume Immature 0.500 H Granulocytes % Neutrophils % 48.6 Lymphocytes % 31.4 Monocytes % 12.8 H Eosinophils % 6.4 Basophils % 0.3 Nucleated Red 0.0 Blood Cells % Immature 0.020 Granulocytes # Neutrophils # 1.8 Lymphocytes # 1.2 Monocytes # 0.5 Eosinophils # 0.2 Basophils # 0.0 Nucleated Red 0.0 Blood Cells # Sodium Level 141 Potassium Level 4.1 Chloride Level 106 Carbon Dioxide 27 Level Anion Gap 8 Blood Urea 17 Nitrogen Creatinine 1.66 H Est Glomerular 41 L Filtrat Rate mL/min Glucose Level 102 Calcium Level 8.4 Phosphorus Level 2.8 Magnesium Level 1.8 Test 08/01/18 08:53 Bedside Glucose 115 ELYSIA OROZCO Aug 01, 2018 09:59
[2018-08-01] MEDS: VANCOMYCIN 750 MG in SOD CHLORIDE 0.9% 150 ML IVPB SCH (10:19)
--- NOTE | 2018-08-01 13:02 | CONS ---
Date/Time of Note Date/Time of Note DATE: 08/01/18 TIME: 13:02 Assessment/Plan Assessment/Plan Chief Complaint/Hosp Course No acute changes overnight. Patient is alert, feels good, denies pain, no fevers overnight. He is n.p.o. for surgery today WBC 3.8, no shift no bands BUN 17 creatinine 1.66 Microbiology: Left foot culture growing enterococcus, Corynebacterium group JK, strep Antimicrobials: Vancomycin Zosyn Physical examination: Well-developed well-nourished elderly man who is alert in no distress. Head atraumatic normocephalic neck is supple chest rise symmetrical breath sounds clear heart: S1-S2. Abdomen soft bowel sounds present. Extremities with left foot dressing intact. Assessment: 1. Left foot osteomyelitis 2. Diabetes 3. Hypertension 4. Peripheral neuropathy, status post angiogram Plan: DC Zosyn, continue vancomycin, plan for transmetatarsal amputation today Consultation Date/Type/Reason Admit Date/Time Jul 27, 2018 at 10:23 Initial Consult Date Type of Consult id Exam/Review of Systems Vital Signs Vitals Vital Signs Date Temp Pulse Resp B/P (MAP) Pulse Ox O2 O2 Flow FiO2 Time Delivery Rate 08/01/18 98.1 63 16 174/81 97 08:15 (112) 07/31/18 Room Air 10:08 Intake and Output 07/31/18 07/31/18 08/01/18 1515:00 23:00 07:00 IntakeIntake Total 150 ml 500 ml 1700 ml OutputOutput Total 300 ml 400 ml 1000 ml BalanceBalance -150 ml 100 ml 700 ml Medications Medications Current Medications IV Flush (NS 3 ml) 3 ml PER PROTOCOL IV ; Start 07/27/18 at 10:30 Ondansetron HCl (Zofran Inj) 4 mg Q6H PRN IV NAUSEA AND/OR VOMITING; Start 07/27/18 at 10:30 Acetaminophen (Tylenol Tab) 650 mg Q6H PRN PO PAIN LEVEL 1-3 OR FEVER; Start 07/27/18 at 10:30 Acetaminophen/ Hydrocodone Bitart ([place] (5/325)) 1 tab Q6H PRN PO MODERATE PA IN LEVEL 4-6; Start 07/27/18 at 10:30 Docusate Sodium (Colace) 100 mg Q12H PRN PO CONSTIPATION; Start 07/27/18 at 10:30 Famotidine (Pepcid) 20 mg DAILY PO Last administered on 08/01/18at 08:28; Admin Dose 20 MG; Start 07/27/18 at 12:00 Heparin Sodium (Porcine) (Heparin (5000 Units/1ml)) 5,000 unit Q8 SC Last administered on 07/31/18at 22:09; Admin Dose 5,000 UNIT; Start 07/27/18 at 14:00 Vancomycin HCl (Vanco Iv Per Pharmacy) VANCOMYCIN PER PHARMACY PER PROTOCOL XX ; Start 07/27/18 at 10:30 Piperacillin Sod/ Tazobactam Sod 100 ml @ 200 mls/hr Q8 IVPB Last administered on 08/01/18at 05:50; Admin Dose 200 MLS/HR; Start 07/27/18 at 22:00 Vancomycin HCl 750 mg/Sodium Chloride 150 ml @ 75 mls/hr Q24H IVPB Last administered on 08/01/18at 10:19; Admin Dose 75 MLS/HR; Start 07/28/18 at 11:00 Morphine Sulfate (morphine) 6 mg Q4H PRN PO SEVERE PAIN LEVEL 7-10; Start 07/27/18 at 18:00 Sodium Hypochlorite (Dakin'S (Dilute 140)) 1 applic DAILY IRR Last administered on 08/01/18at 08:29; Admin Dose 1 APPLIC; Start 07/29/18 at 09:00 Diagnostic Test (Pha) (Accu-Chek) 1 ea 02 XX ; Start 07/29/18 at 02:00 Miscellaneous Information 1 ea NOTE XX ; Start 07/28/18 at 21:30 Glucose (Glutose) 15 gm Q15M PRN PO DECREASED GLUCOSE; Start 07/28/18 at 21:30 Glucose (Glutose) 22.5 gm Q15M PRN PO DECREASED GLUCOSE; Start 07/28/18 at 21:30 Dextrose (D50w Syringe) 25 ml Q15M PRN IV DECREASED GLUCOSE; Start 07/28/18 at 21:30 Dextrose (D50w Syringe) 50 ml Q15M PRN IV DECREASED GLUCOSE; Start 07/28/18 at 21:30 Glucagon (Glucagen) 1 mg Q15M PRN IM DECREASED GLUCOSE; Start 07/28/18 at 21:30 Glucose (Glutose) 15 gm Q15M PRN BUCCAL DECREASED GLUCOSE; Start 07/28/18 at 21:30 Sodium Chloride 1,000 ml @ 125 mls/hr Q8H IV Last administered on 08/01/18at 10:22; Admin Dose 125 MLS/HR; Start 07/29/18 at 21:30 Magnesium Oxide (Mag-Ox 400) 400 mg BID PO Last administered on 08/01/18at 08:28; Admin Dose 400 MG; Start 07/30/18 at 09:00 Carvedilol (Coreg) 3.125 mg BID PO Last administered on 08/01/18at 08:29; Admin Dose 3.125 MG; Start 07/30/18 at 21:00 Insulin Aspart (Novolog Insulin Pen) NOVOLOG *MODERATE* ALGORI... Q4 SC ; Start 07/31/18 at 01:00 Results Result Diagram: 08/01/18 0651 08/01/18 0651 Results 24 hrs Laboratory Tests Test 07/31/18 13:21 07/31/18 17:07 07/31/18 21:07 08/01/18 01:30 Bedside Glucose 102 125 99 128 Test 08/01/18 05:16 08/01/18 06:51 08/01/18 08:53 Bedside Glucose 106 115 White Blood 3.8 L Count Red Blood Count 2.76 L Hemoglobin 8.7 L Hematocrit 26.8 L Mean Corpuscular 97.1 Volume Mean Corpuscular 31.5 Hemoglobin Mean Corpuscular 32.5 Hemoglobin Shania nt Red Cell 12.6 Distribution Width Platelet Count 273 Mean Platelet 9.4 Volume Immature 0.500 H Granulocytes % Neutrophils % 48.6 Lymphocytes % 31.4 Monocytes % 12.8 H Eosinophils % 6.4 Basophils % 0.3 Nucleated Red 0.0 Blood Cells % Immature 0.020 Granulocytes # Neutrophils # 1.8 Lymphocytes # 1.2 Monocytes # 0.5 Eosinophils # 0.2 Basophils # 0.0 Nucleated Red 0.0 Blood Cells # Sodium Level 141 Potassium Level 4.1 Chloride Level 106 Carbon Dioxide 27 Level Anion Gap 8 Blood Urea 17 Nitrogen Creatinine 1.66 H Est Glomerular 41 L Filtrat Rate mL/min Glucose Level 102 Calcium Level 8.4 Phosphorus Level 2.8 Magnesium Level 1.8 CARLOS CRUZ NP Aug 01, 2018 13:02
[2018-08-01] MEDS ORDERED: FENTAnyl 50 MCG/ML VIAL ONE (16:48)
[2018-08-01] MEDS ORDERED: MIDAZOLAM 1 MG/ML 2 ML INJ ONE (16:49)
[2018-08-01] MEDS ORDERED: LIDOCAINE 2% (SDV) 5 ML INJ ONE (16:59)
[2018-08-01] MEDS ORDERED: METOCLOPRAMIDE 10 MG INJ ONE (16:59)
[2018-08-01] MEDS ORDERED: ETOMIDATE 20 MG INJ ONE (16:59)
--- NOTE | 2018-08-01 17:09 | PN ---
Date/Time of Note Date/Time of Note DATE: 08/01/18 TIME: 17:09 Assessment/Plan Lines/Catheters IV Catheter Type (from Nrs): Peripheral IV Chopra in Place (from Nrs): No Assessment/Plan Problems: (1) Osteomyelitis of toe of left foot Status: Acute (2) HTN (hypertension) Status: Chronic (3) PAD (peripheral artery disease) Status: Chronic (4) Osteomyelitis of left foot Status: Acute (5) Diabetic foot infection Status: Acute (6) CKD stage 3 due to type 1 diabetes mellitus Status: Chronic Assessment/Plan Patient to OR today for TMA of the right foot. Subjective 24 Hr Interval Summary Surgery planned today for TMA of right foot. Reports no new problems. Denies fever and chills today. Constitutional: no complaints Pain Control: well controlled Exam/Review of Systems Vital Signs Vitals Exam Free Text/Dictation Open wound right foot with partial amputation of the toes. Decreased edema noted; no erythema. No other changes. SUSAN WINSLOW DPM Aug 01, 2018 17:09
--- NOTE | 2018-08-01 17:10 | HPN ---
Date/Time of Note Date/Time of Note DATE: 08/01/18 TIME: 17:09 Interval H&P Admission Note Pt. seen H&P reviewed: No system changes SUSAN WINSLOW DPM Aug 01, 2018 17:10
--- NOTE | 2018-08-01 17:24 | PREAC ---
Date/Time of Note Date/Time of Note DATE: 08/01/18 TIME: 17: Anesthesia Eval and Record Evaluation Time Pre-Procedure Interview DATE: 08/01/18 TIME: 17:22 Age 68 Sex male NPO: 8 hrs Preoperative diagnosis Left foot infection Planned procedure L foot partial amputation Past Medical History Past Medical History: Includes Cardio: HTN, CAD, CHF, Other (PVD severe, s/p bypass) Endo: Diabetes Neuro: Peripheral neuropathy Renal: SHEEBA, CKD GI: GERD Heme: Anemia Psych: Depression Surgery & Anesthesia Issues No known issue Meds Anticoagulation: No Beta Leanne within 24 hr: No Reason Beta Leanne not given: Hypoglycemia Reported Medications Insulin NPH Human Isophane (Humulin N) 100 Unit/1 Ml Vial, 8 UNIT SQ BID, VIAL 07/27/18 Discontinued Reported Medications Nph, Human Insulin Isophane (Humulin N) 100 Units/Ml Vial, 8 UNIT SC BID, VIAL 11/28/14 Current Medications IV Flush (NS 3 ml) 3 ml PER PROTOCOL IV ; Start 07/27/18 at 10:30 Ondansetron HCl (Zofran Inj) 4 mg Q6H PRN IV NAUSEA AND/OR VOMITING; Start 07/27/18 at 10:30 Acetaminophen (Tylenol Tab) 650 mg Q6H PRN PO PAIN LEVEL 1-3 OR FEVER; Start 07/27/18 at 10:30 Acetaminophen/ Hydrocodone Bitart ([place] (5/325)) 1 tab Q6H PRN PO MODERATE PAIN LEVEL 4-6; Start 07/27/18 at 10:30 Docusate Sodium (Colace) 100 mg Q12H PRN PO CONSTIPATION; Start 07/27/18 at 10:30 Famotidine (Pepcid) 20 mg DAILY PO Last administered on 08/01/18at 08:28; Admin Dose 20 MG; Start 07/27/18 at 12:00 Heparin Sodium (Porcine) (Heparin (5000 Units/1ml)) 5,000 unit Q8 SC Last administered on 07/31/18at 22:09; Admin Dose 5,000 UNIT; Start 07/27/18 at 14:00 Vancomycin HCl (Vanco Iv Per Pharmacy) VANCOMYCIN PER PHARMACY PER PROTOCOL XX ; Start 07/27/18 at 10:30 Morphine Sulfate (morphine) 6 mg Q4H PRN PO SEVERE PAIN LEVEL 7-10; Start 07/27/18 at 18:00 Sodium Hypochlorite (Dakin'S (Dilute )) 1 applic DAILY IRR Last administered on 08/01/18at 08:29; Admin Dose 1 APPLIC; Start 07/29/18 at 09:00 Diagnostic Test (Pha) (Accu-Chek) 1 ea 02 XX ; Start 07/29/18 at 02:00 Miscellaneous Information 1 ea NOTE XX ; Start 07/28/18 at 21:30 Glucose (Glutose) 15 gm Q15M PRN PO DECREASED GLUCOSE; Start 07/28/18 at 21:30 Glucose (Glutose) 22.5 gm Q15M PRN PO DECREASED GLUCOSE; Start 07/28/18 at 21:30 Dextrose (D50w Syringe) 25 ml Q15M PRN IV DECREASED GLUCOSE; Start 07/28/18 at 21:30 Dextrose (D50w Syringe) 50 ml Q15M PRN IV DECREASED GLUCOSE; Start 07/28/18 at 21:30 Glucagon (Glucagen) 1 mg Q15M PRN IM DECREASED GLUCOSE; Start 07/28/18 at 21:30 Glucose (Glutose) 15 gm Q15M PRN BUCCAL DECREASED GLUCOSE; Start 07/28/18 at 21:30 Sodium Chloride 1,000 ml @ 125 mls/hr Q8H IV Last administered on 08/01/18at 10:22; Admin Dose 125 MLS/HR; Start 07/29/18 at 21:30 Magnesium Oxide (Mag-Ox 400) 400 mg BID PO Last administered on 08/01/18at 08:28; Admin Dose 400 MG; Start 07/30/18 at 09:00 Carvedilol (Coreg) 3.125 mg BID PO Last administered on 08/01/18at 08:29; Admin Dose 3.125 MG; Start 07/30/18 at 21:00 Insulin Aspart (Novolog Insulin Pen) NOVOLOG *MODERATE* ALGORI... Q4 SC ; Start 07/31/18 at 01:00 Vancomycin HCl 250 ml @ 125 mls/hr Q24H IVPB ; Start 08/02/18 at 11:00 Meds reviewed: Yes Allergies Coded Allergies: No Known Allergy (Unverified , 07/27/18) Allergies Reviewed: Yes Labs/Studies Labs Reviewed: Reviewed by anesthesiologist Result Diagram: 08/01/18 0651 08/01/18 0651 Laboratory Tests 08/01/18 06:51 test: N/A Studies: ECG, CXR Pre-procedure Exam Last vitals Vital Signs Date Temp Pulse Resp B/P (MAP) Pulse Ox O2 O2 Flow FiO2 Time Delivery Rate 08/01/18 97.9 76 16 172/79 98 14:20 (110) 07/31/18 Room Air 10:08 Airway: Adequate mouth opening, Adequate thyromental dist Mallampati: Mallampati III Teeth: Normal Lung: Normal Heart: Normal ASA Physical Status ASA physical status: 3 Emergency: None Planned Anesthetic General/MAC: LMA Planned Pain Management Single shot nerve block, Parenteral pain med Pre-operative Attestations Prior to commencing anesthesia and surgery, the patient was re-evaluated, there was verification of: *The patient's identity *The results of appropriate recent lab work and preoperative vital signs *The above evaluation not changing prior to induction *Anesthetic plan, risk benefits, alternative and complications discussed with patient/family; questions answered; patient/family understands, accepts and wishes to proceed. PREETHI ORNELAS MD Aug 01, 2018 17:24
[2018-08-01] MEDS ORDERED: ROPIVACAINE 0.5 % 30 ML VIAL ONE (17:28)
[2018-08-01] MEDS ORDERED: LABETALOL HCL 20MG INJ IV PRN (17:30)
[2018-08-01] MEDS ORDERED: DIPHENHYDRAMINE 50 MG INJ IV PRN (17:30)
[2018-08-01] MEDS ORDERED: hydrALAzine 20 MG INJ IV PRN (17:30)
[2018-08-01] MEDS ORDERED: LEVALBUTEROL (NEB) 1.25 MG/0.5 ML AMP HHN PRN (17:30)
[2018-08-01] MEDS ORDERED: IPRATROPIUM (NEB) 0.5 MG/2.5 ML AMP HHN PRN (17:30)
[2018-08-01] MEDS ORDERED: HYDROmorphONE 1 MG/5 ML IV SYRINGE IV PRN ×2 (17:30)
[2018-08-01] MEDS ORDERED: ONDANSETRON 4 MG INJ IV PRN (17:30)
[2018-08-01] MEDS ORDERED: FENTAnyl 50 MCG/ML VIAL IV PRN ×2 (17:30)
[2018-08-01] MEDS ORDERED: POLYMYXIN/BACITRACIN 1L IRRIG IRR ONE (18:15)
--- NOTE | 2018-08-01 18:57 | OPR ---
Date/Time of Note Date/Time of Note DATE: 08/01/18 TIME: 18:57 Operative Report Procedure Date: Aug 01, 2018 Preoperative Diagnosis Left forefoot gangrene Osteomyelitis of the left foot Open wound of the left foot Cellulitis of the left foot Abscess of the left foot Diabetes mellitus Peripheral vascular disease Peripheral neuropathy Postoperative Diagnosis Left forefoot gangrene Osteomyelitis of the left foot Open wound of the left foot Cellulitis of the left foot Abscess of the left foot Diabetes mellitus Peripheral vascular disease Peripheral neuropathy Operation/Procedure Performed Transmetatarsal amputation of the left foot Surgeon see signature line Rail 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 Risks and complications of this type of surgery was discussed with patient in great detail. Risks and complications discussed include, but are not limited to, postoperative infection, postoperative pain, chronic pain and disability, hardware failure, malunion, nonunion, delayed union, failure of surgery to correct the problem, need for additional surgical procedures, toenail changes, onychomycosis, deep venous thrombosis, gait disturbance, problems with shoegear, limitation of activities, limb loss and loss of life. Patient understands the discussion and agrees to the procedure. An informed consent was obtained, signed and placed in the chart. No guarantee or warrantee was given or implied as to the outcome of the procedure either in verbal or written form. Procedure Description The patient was seen in the preoperative unit. The proposed surgery was discussed with patient in great detail. Risks and complications of this type of surgery was discussed with patient in great detail. Opportunity was given to patient to ask questions and all questions were answered. The patient acknowledges understanding of the discussion. An informed consent was then obtained, signed and placed in the chart. Patient was taken to the operating room and was placed on the operating table in the supine position. All bony prominences were padded properly. A timeout was called by the circulating nurse. Everyone in the operating room was agreeable to the timeout. The patient was then placed under [general anesthesia] by the anesthesiologist. The left lower extremity was scrubbed,l prepped, and draped in the usual aseptic manner. Procedure: Transmetatarsal amputation left foot Attention was directed to the left forefoot. Using a skin marker, I marked the incision. A #10 blade was used to make my incision down to bone. Bleeders were cauterized as necessary. Using a power saw, the first to the fifth metatarsal heads were then cut and passed to the back table. Necrotic soft tissue and bone was sharply debrided using sharp instrumentation to bleeding tissue. The wound was flushed with copious amounts of sterile normal saline. The area was prepped for primary closure. There was some excess bone that needed to be cut and a power saw was used for that as well. The subcutaneous layer was closed using 3- 0 Vicryl suture and the skin was closed using 0 Prolene in simple suture technique. Postoperative injection of 20 cc of a one-to-one mixture of 2% lidocaine plain and 0.5% Marcaine plain was given as an ankle block. Sterile dressing was applied to the left lower extremity. A posterior splint was applied to the left lower extremity. The patient our the procedure and anesthesia well. He was transferred to the recovery with vital signs stable and vascular status intact to the left lower extremity. The patient will be discharged home after postoperative monitoring. He is to remain nonweightbearing on the left lower extremity using crutches. Postop orders were written. Prescription was submitted electronically to his [facility]. SUSAN WINSLOW DPM Aug 01, 2018 18:57
--- NOTE | 2018-08-01 18:57 | OPPN ---
Date/Time of Note Date/Time of Note DATE: 08/01/18 TIME: 18:55 Operative Report Preoperative Diagnosis Abscess left foot Chronic open wound left foot Diabetes mellitus Peripheral neuropathy Peripheral vascular disease Status post previous amputation of toes Postoperative Diagnosis Abscess left foot Chronic open wound left foot Diabetes mellitus Peripheral neuropathy Peripheral vascular disease Status post previous amputation of toes Operation/Procedure Performed Transmetatarsal amputation of the left foot Surgeon see signature line judicial assistant None Anesthesia: general Estimated blood loss: 10 - 50 ml's Transfusion Required none Specimen Left forefoot Grafts/Implants none Complications none SUSAN WINSLOW DPM Aug 01, 2018 18:57
[2018-08-02 01:38] VITALS: BP 140/68; PULSE 92; RESP 18
[2018-08-02] MEDS: SOD CHLORIDE 0.9% 1,000 ML IV SCH ×4 (01:49→22:40)
[2018-08-02] MEDS: ACCU-CHEK XX SCH (01:50)
[2018-08-02] MEDS: HEPARIN 5,000 UNIT/1 ML VIAL SC SCH ×3 (05:59→22:42)
[2018-08-02] MEDS: INSULIN ASPART [NOVOLOG] 3 ML PEN SC SCH ×4 (07:52→20:38)
[2018-08-02 08:03] VITALS: BP 162/76; PULSE 85; RESP 18
[2018-08-02] MEDS: MAGNESIUM OXIDE 400 MG TAB PO SCH ×2 (08:26→20:37)
[2018-08-02] MEDS: FAMOTIDINE 20 MG TAB PO SCH (08:26)
[2018-08-02] MEDS: SODIUM HYPOCHLORITE (1/40) 1 APPLIC BTL IRR SCH (08:27)
--- NOTE | 2018-08-02 09:48 | PN ---
Date/Time of Note Date/Time of Note DATE: 08/02/18 TIME: 09:45 Assessment/Plan VTE Prophylaxis Risk score (from Nsg)>0 risk: 5 SCD applied (from Ns): Yes Pharmacological prophylaxis: heparin Lines/Catheters IV Catheter Type (from Nrsg): Peripheral IV Urinary Cath still in place: No Assessment/Plan Assessment/Plan 68 yo male with: 1. Diabetic foot infection with evidence of phlegmon and osteomyelitis on MRI , polymicrobial infection, currently on vancomycin with seems to cover most of the organisms growing so far. Status post transmetatarsal amputation POD#1 Appreciate vascular surgery recommendations, no vascular intervention needed. Continue current care, follow-up wound care recommendations from podiatry. Follow-up final antibiotic recommendations if any from infectious disease, for now patient on IV Vancomycin. 2. Hypertension, continue Coreg. Avoiding ARB and PASCUAL inhibitors given renal function. 3. Chronic kidney disease stage III secondary to diabetic and or hypertensive nephropathy. Renal function seems to have improved as of today. Avoiding nephrotoxic agents, all medications being renally dose. Monitor BMP. 4. PAD/PVD, again appreciate recommendations from vascular surgery, no intervention needed to his left lower extremity. Continue medical management and follow-up podiatry recommendations. 5. Diabetes mellitus, continue current insulin regimen. A1C 6.2 Prophylaxis: Heparin for DVT prophylaxis, Pepcid for GI prophylaxis. Disposition: Status post transmetatarsal left foot amputation, patient doing fairly well, PT eval, discharge planning in the next 24-48 hours if okay with podiatry. Subjective 24 Hr Interval Summary Free Text/Dictation Patient feels well this morning, he denies pain. He is status post left foot transmetatarsal amputation, dressing looks fairly clean dry and intact. Exam/Review of Systems Vital Signs Vitals Vital Signs Date Temp Pulse Resp B/P (MAP) Pulse Ox O2 O2 Flow FiO2 Time Delivery Rate 08/02/18 99.0 85 18 162/76 97 08:03 (104) 08/01/18 Room Air 19:54 08/01/18 6.0 19:04 Intake and Output 08/01/18 08/01/18 08/02/18 1515:00 23:00 07:00 IntakeIntake Total 650 ml 1500 ml 1675 ml OutputOutput Total 500 ml 650 ml 1800 ml BalanceBalance 150 ml 850 ml -125 ml Exam Constitutional: alert, oriented, well developed Respiratory: clear to auscultation, normal air movement Cardiovascular: regular rate and rhythm, nl pulses Gastrointestinal: soft, non-tender Musculoskeletal: other (Status post left foot transmetatarsal amputation) Extremities: normal pulses Neurological: DIRECTOR EXPERIMENTAL MEDICINE II-XII intact, nl mental status, nl speech, nl strength (At baseline) ELYSIA OROZCO Aug 02, 2018 09:48
[2018-08-02] MEDS ORDERED: VANCOMYCIN 1 GM 250 ML IVPB SCH (11:00)
--- NOTE | 2018-08-02 13:50 | CONS ---
Date/Time of Note Date/Time of Note DATE: 08/02/18 TIME: 13:49 Assessment/Plan Assessment/Plan Chief Complaint/Hosp Course No acute changes overnight. Microbiology: Left foot culture growing enterococcus, Corynebacterium group JK, strep Antimicrobials: Vancomycin Physical examination: Well-developed well-nourished elderly man who is alert in no distress. Head atraumatic normocephalic neck is supple chest rise symmetrical breath sounds clear heart: S1-S2. Abdomen soft bowel sounds present. Extremities with left foot dressing intact. Assessment: 1. Left foot osteomyelitis, s/p TMA 08/01/18 2. Diabetes 3. Hypertension 4. Peripheral neuropathy, status post angiogram Plan: Stable, continue abx, per dw Dr Jack will keep on current abx for 2 more weeks, will order PICC DW DR Collins Consultation Date/Type/Reason Admit Date/Time Jul 27, 2018 at 10:23 Initial Consult Date Type of Consult id Exam/Review of Systems Vital Signs Vitals Vital Signs Date Temp Pulse Resp B/P (MAP) Pulse Ox O2 O2 Flow FiO2 Time Delivery Rate 08/02/18 99.0 85 18 162/76 97 08:03 (104) 08/01/18 Room Air 19:54 08/01/18 6.0 19:04 Intake and Output 08/01/18 08/01/18 08/02/18 1515:00 23:00 07:00 IntakeIntake Total 650 ml 1500 ml 1675 ml OutputOutput Total 500 ml 650 ml 1800 ml BalanceBalance 150 ml 850 ml -125 ml CARLOS CRUZ GENERAL ASSISTANT Aug 02, 2018 13:50
[2018-08-02 14:34] VITALS: BP 142/63; PULSE 78; RESP 18
[2018-08-02 20:00] VITALS: BP 168/68; PULSE 86; RESP 18
[2018-08-03] MEDS: ACCU-CHEK XX SCH (00:22)
[2018-08-03 02:00] VITALS: BP 154/69; PULSE 70; RESP 18
[2018-08-03] MEDS: SOD CHLORIDE 0.9% 1,000 ML IV SCH (05:33)
[2018-08-03] MEDS: HEPARIN 5,000 UNIT/1 ML VIAL SC SCH ×2 (05:34→14:27)
[2018-08-03 07:30] VITALS: BP 172/81; PULSE 75; RESP 16
[2018-08-03] MEDS: INSULIN ASPART [NOVOLOG] 3 ML PEN SC SCH ×2 (08:00→12:00)
[2018-08-03] MEDS ORDERED: LIDOCAINE 1% (MPF) 5 ML VIAL SC ONE (08:00)
[2018-08-03] MEDS: SODIUM HYPOCHLORITE (1/40) 1 APPLIC BTL IRR SCH (09:00)
[2018-08-03] MEDS: MAGNESIUM OXIDE 400 MG TAB PO SCH (09:03)
[2018-08-03] MEDS: FAMOTIDINE 20 MG TAB PO SCH (09:03)
--- NOTE | 2018-08-03 09:29 | PAC ---
Date/Time of Note Date/Time of Note DATE: 08/03/18 TIME: 09:29 Post-Anesthesia Notes Post-Anesthesia Note Last documented vital signs Vital Signs Date Temp Pulse Resp B/P (MAP) Pulse Ox O2 O2 Flow FiO2 Time Delivery Rate 08/03/18 98.2 75 16 172/81 95 Room Air 07:30 (111) 08/01/18 6.0 19:04 Activity: WNL Respiratory function: WNL Cardiovascular function: WNL Mental status: Baseline Pain reasonably controlled: Yes Hydration appropriate: Yes Nausea/Vomiting absent: Yes PREETHI ORNELAS MD Aug 03, 2018 09:29
[2018-08-03] MEDS ORDERED: VANCOMYCIN 1.25 GM in SOD CHLORIDE 0.9% 250 ML IVPB SCH (11:00)
--- NOTE | 2018-08-03 11:07 | PN ---
Date/Time of Note Date/Time of Note DATE: 08/03/18 TIME: 11:03 Assessment/Plan VTE Prophylaxis Risk score (from Ns)>0 risk: 5 SCD applied (from Ns): Yes Pharmacological prophylaxis: NA/contraindicated Pharm contraindication: surgical contra Lines/Catheters IV Catheter Type (from Nrsg): Peripheral IV Urinary Cath still in place: No Assessment/Plan Assessment/Plan 68 yo male with: 1. Diabetic foot infection with evidence of phlegmon and osteomyelitis on MRI , polymicrobial infection, currently on vancomycin with seems to cover most of the organisms growing so far. Status post transmetatarsal amputation POD#2 Appreciate vascular surgery recommendations, no vascular intervention needed. Continue current care, follow-up wound care recommendations from podiatry. Appreciate infectious disease recommendation and podiatry recommendation, patient on IV Vancomycin to be continued for 2 more weeks. Home health will be ordered for IV antibiotics, PICC line care, wound care, physical therapy. Crutches have been ordered.. 2. Hypertension, continue Coreg. Avoiding ARB and PASCUAL inhibitors given renal function. 3. Chronic kidney disease stage III secondary to diabetic and or hypertensive nephropathy. Renal function stable. Avoiding nephrotoxic agents, all medications being renally dose. Monitor BMP. 4. PAD/PVD, again appreciate recommendations from vascular surgery, no intervention needed to his left lower extremity. Continue medical management and follow-up podiatry recommendations. 5. Diabetes mellitus, continue current insulin regimen. A1C 6.2 Prophylaxis: Heparin for DVT prophylaxis, Pepcid for GI prophylaxis. Disposition: PICC line placement pending, appreciate recommendations from PT and infectious disease. Awaiting final recommendation from podiatry for discharge planning today. Subjective 24 Hr Interval Summary Free Text/Dictation Patient doing well, no specific complaints, appreciate physical therapy evaluation and recommendations. Appreciate infectious disease recommendations, awaiting PICC line placement. Discharge planning today if okay with podiatry. Exam/Review of Systems Vital Signs Vitals Vital Signs Date Temp Pulse Resp B/P (MAP) Pulse Ox O2 O2 Flow FiO2 Time Delivery Rate 08/03/18 98.2 75 16 172/81 95 Room Air 07:30 (111) 08/01/18 6.0 19:04 Intake and Output 08/02/18 08/02/18 08/03/18 1515:00 23:00 07:00 IntakeIntake Total 1375 ml 2500 ml 1800 ml OutputOutput Total 700 ml 750 ml 2800 ml BalanceBalance 675 ml 1750 ml -1000 ml Exam Constitutional: alert, oriented, well developed Respiratory: clear to auscultation, normal air movement Cardiovascular: regular rate and rhythm, nl pulses Gastrointestinal: soft, non-tender Musculoskeletal: other (Status post TMA left foot. Dressing stable.) Extremities: normal pulses Neurological: SENIOR QUALITY ANALYST II-XII intact, nl mental status, nl speech, nl strength (At baseline.) ELYSIA OROZCO Aug 03, 2018 11:07
--- NOTE | 2018-08-03 11:15 | PDOCDIS ---
Discharge Instructions CONDITION [id number] Patient Condition: [id number] Stable HOME CARE INSTRUCTIONS: [id number] Special Diet: [id number] CCD ACTIVITY: [id number] Activity Restrictions: [id number] Slowly Increase Activity No Weight Bearing (Left foot) FOLLOW UP/APPOINTMENTS Follow-up Plan Follow-up with podiatry, Dr. Jack, within 1-2 weeks Follow-up with home health for home health PT, home health wound care, home health PICC line care, home health IV antibiotics. Follow-up with primary care physician within 1-2 weeks. ELYSIA OROZCO Aug 03, 2018 11:15
[2018-08-03] MEDS ORDERED: CARV3.1260 PO (11:19)
[2018-08-03] MEDS ORDERED: VANC1.2511 IV (11:19)
[2018-08-03] MEDS ORDERED: [UNRECOGNIZED DRUG - CODE] IRR (11:19)
[2018-08-03] MEDS ORDERED: HYDR-3601 PO (11:19)
[2018-08-03 14:20] VITALS: BP 154/68; PULSE 76; RESP 16
--- NOTE | 2018-08-03 19:10 | CONS ---
Date/Time of Note Date/Time of Note DATE: 08/03/18 TIME: 19:09 Assessment/Plan Assessment/Plan Chief Complaint/Hosp Course 1230 No acute changes overnight, alert, getting PICC. Microbiology: Left foot culture growing enterococcus, Corynebacterium group JK, strep Antimicrobials: Vancomycin Physical examination: Well-developed well-nourished elderly man who is alert in no distress. Head atraumatic normocephalic neck is supple chest rise symmetrical breath sounds clear heart: S1-S2. Abdomen soft bowel sounds present. Extremities with left foot dressing intact. Assessment: 1. Left foot osteomyelitis, s/p TMA 08/01/18 2. Diabetes 3. Hypertension 4. Peripheral neuropathy, status post angiogram Plan: Stable, pending dc on current abx for 2 more weeks Consultation Date/Type/Reason Admit Date/Time Jul 27, 2018 at 10:23 Initial Consult Date Type of Consult id Exam/Review of Systems Vital Signs Vitals Vital Signs Date Temp Pulse Resp B/P (MAP) Pulse Ox O2 O2 Flow FiO2 Time Delivery Rate 08/03/18 98.2 76 16 154/68 98 Room Air 14:20 (96) 08/01/18 6.0 19:04 Intake and Output 08/02/18 08/02/18 08/03/18 1515:00 23:00 07:00 IntakeIntake Total 1375 ml 2500 ml 1800 ml OutputOutput Total 700 ml 750 ml 2800 ml BalanceBalance 675 ml 1750 ml -1000 ml CARLOS CRUZ NP Aug 03, 2018 19:10
--- NOTE | 2018-08-06 10:46 | DS ---
Date/Time of Note Date/Time of Note DATE: 08/06/18 TIME: 10:40 Discharge Summary Admission/Discharge Info Admit Date/Time Jul 27, 2018 at 10:23 Discharge Date/Time Aug 03, 2018 at 17:00 Discharge Diagnosis 1. Diabetic foot infection with evidence of phlegmon and osteomyelitis 2. Status post left transmetatarsal amputation 3. Hypertension, 4. Chronic kidney disease stage III 5. PAD/PVD, 6. Diabetes mellitus Patient Condition: Stable Consults Vascular surgery, Dr. Steel Infectious disease, Dr. Steinberg Podiatry, Dr. Jack Procedures Status post transmetatarsal amputation Hx of Present Illness 68 m with DM2 on insulin, HTN, HLD, CKD3 (DM nephropathy ), PAD s/p LLE bypass [address] Steel , s/p left toe amputation who was referred by his mass spec Dr Jack in concern for DM foot infection and osteomyelitis. He denies LE pain, denies fever chills , fatigue . denies CP , SOB, nausea vomiting , abdominal pain , melena, hematochezia , change in urinary habits , change in vision . Over the course of past month he developed progressively worsening LLE infections . Hospital Course Patient was started on IV antibiotics, he ended up growing multiple organisms from his foot infection all sensitive to vancomycin, he also had a transmetat arsal amputation of the left foot. This was done after evaluation by vascular and lower extremity angiogram that did not show any lesions amenable to surgical intervention. Patient was discharged in stable condition, he is to complete 2 more weeks of IV vancomycin. PICC line was placed and the patient was discharged home with pharmacy to monitor as an outpatient both renal function and vancomycin dosing. He is also to follow-up with Dr. Jack as an outpatient regarding postop care and wound care was also ordered for home. Patient was provided with crutches at the time of discharge. Dr Jack did agree with discharge planning and I did request for the patient to complete 2 more weeks of IV vancomycin as outpatient. Home Meds Active Scripts Vancomycin/0.9 % Sod Chloride (Vanco 1.25 gm/150 ml-0.9% NaCl) 1.25 Gm/150 Ml Plast..bag, 1.25 GM IV Q24H for 14 Days for Home Health Prov:ELYSIA OROZCO 08/03/18 Hydrocodone Bit-Acetaminophen (Hydrocodone Bit-APAP) 5-325MG Tablet, 1 TAB PO Q6H PRN for PAIN, #30 TAB Prov:ELYSIA OROZCO 08/03/18 Carvedilol* (Carvedilol*) 3.125 Mg Tablet, 3.125 MG PO BID for 30 Days, TAB 3 Refills Prov:ELYSIA OROZCO 08/03/18 Reported Medications Insulin NPH Human Isophane (Humulin N) 100 Unit/1 Ml Vial, 8 UNIT SQ BID, VIAL 07/27/18 Follow-up Plan Follow-up with podiatry, Dr. Jack, within 1-2 weeks Follow-up with home health for home health PT, home health wound care, home health PICC line care, home health IV antibiotics. Follow-up with primary care physician within 1-2 weeks. Primary Care Provider Not On Staff Doctor Time spent on discharge: > 30 minutes ELYSAI OROZCO Aug 06, 2018 10:46
== END 2018-08-03 17:00 | disposition home health service (06) | DRG 617 ==
LOC: E/R 08:37 → PP2 10:23
PROVIDERS: ADMIT Internal Medicine; ATTEND Internal Medicine
PROC: B4101ZZ Fluoroscopy of Abdominal Aorta using Low Osmolar Contrast (ICD-10-PCS; 2018-07-31)
PROC: B41J1ZZ Fluoroscopy of Other Lower Arteries using Low Osmolar Contrast (ICD-10-PCS; 2018-07-31)
PROC: 0Y6N0ZB Detachment at Left Foot, Partial 2nd Ray, Open Approach (ICD-10-PCS; 2018-08-01)
PROC: 0Y6N0ZC Detachment at Left Foot, Partial 3rd Ray, Open Approach (ICD-10-PCS; 2018-08-01)
PROC: 0Y6N0ZD Detachment at Left Foot, Partial 4th Ray, Open Approach (ICD-10-PCS; 2018-08-01)
PROC: 0Y6N0ZF Detachment at Left Foot, Partial 5th Ray, Open Approach (ICD-10-PCS; 2018-08-01)
PROC: 0Y6N0Z9 Detachment at Left Foot, Partial 1st Ray, Open Approach (ICD-10-PCS; principal; 2018-08-01 17:00)
PROC: 02H633Z Insertion of Infusion Device into Right Atrium, Percutaneous Approach (ICD-10-PCS; 2018-08-03)
DX: E10.621 Type 1 diabetes mellitus with foot ulcer (principal); M00.9 Pyogenic arthritis, unspecified; M86.172 Other acute osteomyelitis, left ankle and foot; L02.612 Cutaneous abscess of left foot; E10.69 Type 1 diabetes mellitus with other specified complication; E10.51 Type 1 diabetes mellitus with diabetic peripheral angiopathy without gangrene; N17.9 Acute kidney failure, unspecified; I12.9 Hypertensive chronic kidney disease with stage 1 through stage 4 chronic kidney disease, or unspecified chronic kidney disease; E10.22 Type 1 diabetes mellitus with diabetic chronic kidney disease; N18.3 Chronic kidney disease, stage 3 (moderate); E78.5 Hyperlipidemia, unspecified; E10.42 Type 1 diabetes mellitus with diabetic polyneuropathy; Z89.422 Acquired absence of other left toe(s)
CPT/HCPCS: 36415; 36569; 71045; 73718; 75630; 75710; 76775; 76937; 80048; 80053; 80061; 80202; 82607; 82728; 82746; 82962; 83036; 83540; 83605; 83735; 84100; 84436; 84479; 85025; 85610; 85651; 85730; 86140; 87040; 87070; 87086; 88307; 93005; 93306; 93922; 93971; 96374; 97161; C1894; J0360; J0610; J1644; J1815; J2250; J2543; J2765; J2795; J2916; J3010; J3370; J7030; J7040; J7050; Q9967